=== PATIENT | female | born 1945 ===

== ENCOUNTER 2018-08-25 21:41 | Inpatient (IN) | payer MEDICARE ==
--- NOTE | 2018-08-25 22:41 | C.PDOC ---
History Of Present Illness pt had 3-4 episodes of bright red blood per rectum today. Some discomfort. Has had some diarrhea for a few days, Blood not mixed with stool. No chest pain, no f/c/n/v. Tolerating po Time Seen by Provider: 08/25/18 22:40 Chief Complaint (Nursing): GI Problem History Per: Patient, Family History/Exam Limitations: no limitations Onset/Duration Of Symptoms: Hrs Current Symptoms Are (Timing): Still Present Severity: Moderate Pain Scale Rating Of: 5 Recent travel outside of the [place]: No Additional History Per: Family Past Medical History Reviewed: Historical Data, Nursing Documentation, Vital Signs Vital Signs: Last Vital Signs Temp 97.7 F 08/25/18 21:54 Pulse 103 H 08/25/18 21:54 Resp 20 08/25/18 21:54 BP 172/83 H 08/25/18 21:54 Pulse Ox 99 08/25/18 21:54 - Medical History PMH: Diabetes, Gastritis, HTN, Hypercholesterolemia, Hyperlipidemia Surgical History: Cholecystectomy Family History: States: No Known Family Hx - Social History Hx Alcohol Use: No Hx Substance Use: No - Immunization History Hx Tetanus Toxoid Vaccination: No Hx Influenza Vaccination: Yes Hx Pneumococcal Vaccination: Yes Review Of Systems Constitutional: Negative for: Fever, Chills Cardiovascular: Negative for: Chest Pain Respiratory: Negative for: Shortness of Breath Gastrointestinal: Positive for: Rectal Pain, Other (rectal bleed). Negative for: Nausea, Vomiting, Abdominal Pain Genitourinary: Negative for: Dysuria Musculoskeletal: Negative for: Back Pain Neurological: Negative for: Weakness Psych: Negative for: Anxiety Physical Exam - Physical Exam Appears: Non-toxic, No Acute Distress Skin: Warm, Dry Head: Normacephalic Eye(s): bilateral: Normal Inspection Oral Mucosa: Moist Neck: Supple Chest: Symmetrical Cardiovascular: Rhythm Regular Respiratory: No Rales, No Rhonchi Gastrointestinal/Abdominal: Soft, No Tenderness, No Distention Rectal: Heme Positive, Tenderness (mild), Other (ED lilian stewart present as well as the pt's mom(HIPAA complinat) for the rectal exam) Back: No CVA Tenderness Extremity: Normal ROM Extremity: Bilateral: Atraumatic Pulses: Left Dorsalis Pedis: Normal, Right Dorsalis Pedis: Normal Neurological/Psych: Oriented x3 Gait: Steady ED Course And Treatment - Laboratory Results Result Diagrams: 08/25/18 23:34 08/25/18 23:34 ECG: Interpreted By Me, Viewed By Me ECG Rhythm: Sinus Rhythm (97), Nonspecific Changes O2 Sat by Pulse Oximetry: 99 Pulse Ox Interpretation: Normal - Radiology CXR: Interpreted by Me Disposition Discussed With Dr.: Leonel Best Jr. Comment: accepted the pt on his service and took over the care at 2:56 AM Doctor Will See Patient In The: ED Counseled Patient/Family Regarding: Studies Performed, Diagnosis - Disposition Disposition: HOSPITALIZED Disposition Time: 22:41 Condition: FAIR Forms: [employer] (Thai) - POA Present On Arrival: Poor Glycemic Control - Clinical Impression Clinical Impression: Lower GI bleed, Renal insufficiency Decision To Admit - Pt Status Changed To: Hospital Disposition Of: Inpatient - Admit Certification Admit to Inpatient:: After my assessment, the patient will require hospitalization for at least two midnights. This is because of the severity of symptoms shown, intensity of services needed, and/or the medical risk in this patient being treated as an outpatient. - InPatient: Physician Admission Certification: I certify that this patient requires 2 or more midnights of care for the following reason:: After my assessment, the patient will require hospitalization for at least two midnights. This is because of the severity of symptoms shown, intensity of services needed, and/or the medical risk in this patient being treated as an outpatient. - . Bed Request Type: Regular Admitting Physician: Leonel Best Jr. Patient Diagnosis: Lower GI bleed, Renal insufficiency
[2018-08-25] MEDS ORDERED: Sodium Chloride 0.9% 1,000 ML IV ONE (22:42)
[2018-08-25] MEDS ORDERED: Pantoprazole 80 MG in Sodium Chloride 0.9% 100 ML IV STA (22:42)
[2018-08-25 23:39] LABS: BASO # 0.1 K/uL (0.0-0.2); BASO % 1.3 % (0.0-2.0); EOS # 0.4 K/uL (0.0-0.7); EOS % 3.8 % (0.0-4.0); HEMOGLOBIN 11.3 g/dL (11.0-16.0); LYMPH # 1.6 K/uL (1.0-4.3); LYMPH % 14.5 % (20.0-40.0); MEAN CELL VOLUME 89.7 fL (81.0-99.0); MEAN CORPUSCULAR HEMOGLOBIN 30.6 pg (27.0-31.0); MEAN CORPUSCULAR HGB CONC 34.1 g/dL (33.0-37.0); MEAN PLATELET VOLUME 8.4 fL (7.2-11.7); MONO # 0.7 K/uL (0.0-0.8); MONO % 6.7 % (0.0-10.0); NEUT # 8.2 K/uL (1.8-7.0); NEUT % 73.7 % (50.0-75.0); RBC 3.69 Mil/uL (3.80-5.20); RED CELL DISTRIBUTION WIDTH 13.2 % (11.5-14.5); WHITE BLOOD COUNT 11.1 K/uL (4.8-10.8)
[2018-08-25 23:42] LABS: SQUAMOUS EPITHIAL < 1 /hpf (0-5); URINE BILIRUBIN NEGATIVE (NEGATIVE); URINE BLOOD NEGATIVE (NEGATIVE); URINE CLARITY Clear (Clear); URINE COLOR Straw (YELLOW); URINE GLUCOSE (UA) NORMAL (Normal); URINE LEUKOCYTE ESTERASE NEG Leu/uL (Negative); URINE PROTEIN NEGATIVE (NEGATIVE); URINE UROBILINOGEN NORMAL mg/dL (0.2-1.0)
[2018-08-25] MEDS ORDERED: Sodium Chloride 0.9% 1,000 ML ONE (23:43)
[2018-08-25 23:46] LABS: INR 1.1; PROTHROMBIN TIME 12.5 SECONDS (9.7-12.2)
[2018-08-25 23:49] LABS: ALB/GLOB RATIO 1.1 (1.0-2.1); ALBUMIN 4.3 g/dL (3.5-5.0); CALCIUM 9.4 mg/dl (8.6-10.4)
[2018-08-26] MEDS ORDERED: Sodium Chloride 0.9% 1,000 ML IV ONE (01:06)
[2018-08-26] MEDS ORDERED: Iohexol 300 100 ML IJ ONE (01:18)
[2018-08-26] MEDS ORDERED: Sodium Chloride 0.9% 1,000 ML IV SCH (03:15)
[2018-08-26] MEDS ORDERED: Dextrose 50% SYRINGE Inj (50 ml) IV PRN (03:22)
[2018-08-26] MEDS ORDERED: Glucagon Recombinant 1 mg Inj IM PRN (03:22)
--- NOTE | 2018-08-26 03:49 | CP.PCM.HP ---
History of Present Illness - History of Present Illness History of Present Illness: PGY-1 History and Physical for Dr. Best Patient is a 73 year old F with past medical history of HTN, HLD, DM, gastritis, hemorrhoids presenting to ED with 3-4 episodes of bright red blood per rectum today. Per daughter at bedside, bleeding began at 2pm this afternoon with last episode at 11 pm. Daughter says first episode was chema blood not mixed with stool. In the ED, blood streaked stool was noted. Of note, patient has hx of internal hemorrhoids ~ 6 years ago. Her last colonoscopy was 3 years ago at [facility]. No fevers/chills, headaches, dizziness, syncope, blurry vision, chest pain, palpitation, sob, cough, abdominal pain, n/v/d/c, dysuria, melena. PMHx: HTN, HLD, DM, gastritis, internal hemorrhoids PSHx: cholecystectomy, colonoscopy (3 years ago) Allergies: enalapril, tramadol--"heart racing" Home Medications: as per chart Social Hx: denies alcohol, tobacco, illicit drug use Family Hx: unknown Present on Admission - Present on Admission Any Indicators Present on Admission: Yes Review of Systems - Review of Systems All systems: reviewed and no additional remarkable complaints except Review of Systems: as per HPI Past Patient History - Infectious Disease Hx of Infectious Diseases: None - Past Social History Smoking Status: Never Smoked - CARDIAC Hx Hypercholesterolemia: Yes Hx Hypertension: Yes - ENDOCRINE/METABOLIC Hx Endocrine Disorders: Yes Hx Diabetes Mellitus Type 1: Yes - GASTROINTESTINAL Hx Gastritis: Yes - PSYCHIATRIC Hx Substance Use: No - SURGICAL HISTORY Hx Cholecystectomy: Yes - ANESTHESIA Hx Anesthesia: Yes Hx Anesthesia Reactions: No Meds Allergies/Adverse Reactions: Allergies Allergy/AdvReac Type Severity Reaction Status Date / Time enalapril Allergy Verified 08/25/18 21:59 tramadol Allergy Verified 08/25/18 21:59 Physical Exam - Constitutional Appears: Non-toxic, No Acute Distress - Head Exam Head Exam: ATRAUMATIC, NORMAL INSPECTION, NORMOCEPHALIC - Eye Exam Eye Exam: EOMI, Normal appearance Pupil Exam: NORMAL ACCOMODATION - ENT Exam ENT Exam: Mucous Membranes Moist, Normal Exam - Neck Exam Neck exam: Positive for: Full Rom, Normal Inspection. Negative for: Tenderness - Respiratory Exam Respiratory Exam: Clear to Auscultation Bilateral, NORMAL BREATHING PATTERN. absent: Accessory Muscle Use, Rales, Rhonchi, Wheezes, Respiratory Distress, Stridor - Cardiovascular Exam Cardiovascular Exam: REGULAR RHYTHM, +S1, +S2 - GI/Abdominal Exam GI & Abdominal Exam: Normal Bowel Sounds, Soft. absent: Distended, Firm, Guarding, Organomegaly, Rebound, Rigid, Tenderness - Rectal Exam Rectal Exam: absent: Bloody Stool, Hemorrhoids - Extremities Exam Extremities exam: Positive for: normal capillary refill, normal inspection, pedal pulses present. Negative for: calf tenderness, pedal edema - Back Exam Back exam: NORMAL INSPECTION - Neurological Exam Neurological exam: Alert, CN II-XII Intact, Oriented x3 - Psychiatric Exam Psychiatric exam: Normal Affect, Normal Mood - Skin Skin Exam: Dry, Intact, Normal Color, Warm Results - Vital Signs Recent Vital Signs: Last Vital Signs Temp 97.7 F 08/25/18 21:54 Pulse 89 08/26/18 01:52 Resp 20 08/26/18 01:52 BP 148/66 08/26/18 01:52 Pulse Ox 99 08/26/18 02:57 - Labs Result Diagrams: 08/25/18 23:34 08/25/18 23:34 Labs: Laboratory Results - last 24 hr 08/25/18 08/25/18 08/25/18 22:51 23:22 23:34 WBC 11.1 H RBC 3.69 L Hgb 11.3 Hct 33.1 L MCV 89.7 MCH 30.6 MCHC 34.1 RDW 13.2 Plt Count 261 MPV 8.4 Neut % (Auto) 73.7 Lymph % (Auto) 14.5 L [place] % (Auto) 6.7 Eos % (Auto) 3.8 Baso % (Auto) 1.3 Neut # (Auto) 8.2 H Lymph # (Auto) 1.6 [place] # (Auto) 0.7 Eos # (Auto) 0.4 Baso # (Auto) 0.1 PT INR APTT Sodium Potassium Chloride Carbon Dioxide Anion Gap BUN Creatinine Est GFR ( Amer) Est GFR (Non-Af Amer) Random Glucose Calcium Total Bilirubin AST ALT Alkaline Phosphatase Total Protein Albumin Globulin Albumin/Globulin Ratio Urine Color Urine Clarity Urine pH Ur Specific [place] Urine Protein Urine Glucose (UA) Urine Ketones Urine Blood Urine Nitrate Urine Bilirubin Urine Urobilinogen Ur Leukocyte Esterase Urine WBC (Auto) Urine RBC (Auto) Ur Squamous Epith Cells Hyaline Casts Stool Occult Blood Negative Positive H Blood Type Antibody Screen 08/25/18 08/25/18 08/25/18 23:34 23:34 23:34 WBC RBC Hgb Hct MCV MCH MCHC RDW Plt Count MPV Neut % (Auto) Lymph % (Auto) [place] % (Auto) Eos % (Auto) Baso % (Auto) Neut # (Auto) Lymph # (Auto) [place] # (Auto) Eos # (Auto) Baso # (Auto) PT 12.5 H INR 1.1 APTT 46 H Sodium 137 Potassium 3.8 Chloride 101 Carbon Dioxide 26 Anion Gap 14 BUN 34 H Creatinine 1.5 H Est GFR ( Amer) 41 Est GFR (Non-Af Amer) 34 Random Glucose 262 H D Calcium 9.4 Total Bilirubin 0.3 AST 20 ALT 19 Alkaline Phosphatase 174 H Total Protein 8.0 Albumin 4.3 Globulin 3.8 Albumin/Globulin Ratio 1.1 Urine Color Straw Urine Clarity Clear Urine pH 5.0 Ur Specific [place] 1.009 Urine Protein Negative Urine Glucose (UA) Normal Urine Ketones Negative Urine Blood Negative Urine Nitrate Negative Urine Bilirubin Negative Urine Urobilinogen Normal Ur Leukocyte Esterase Neg Urine WBC (Auto) 2 Urine RBC (Auto) < 1 Ur Squamous Epith Cells < 1 Hyaline Casts 3-5 H Stool Occult Blood Blood Type Antibody Screen 08/25/18 23:42 WBC RBC Hgb Hct MCV MCH MCHC RDW Plt Count MPV Neut % (Auto) Lymph % (Auto) [place] % (Auto) Eos % (Auto) Baso % (Auto) Neut # (Auto) Lymph # (Auto) [place] # (Auto) Eos # (Auto) Baso # (Auto) PT INR APTT Sodium Potassium Chloride Carbon Dioxide Anion Gap BUN Creatinine Est GFR ( Amer) Est GFR (Non-Af Amer) Random Glucose Calcium Total Bilirubin AST ALT Alkaline Phosphatase Total Protein Albumin Globulin Albumin/Globulin Ratio Urine Color Urine Clarity Urine pH Ur Specific [place] Urine Protein Urine Glucose (UA) Urine Ketones Urine Blood Urine Nitrate Urine Bilirubin Urine Urobilinogen Ur Leukocyte Esterase Urine WBC (Auto) Urine RBC (Auto) Ur Squamous Epith Cells Hyaline Casts Stool Occult Blood Blood Type B POSITIVE Antibody Screen Negative Assessment & Plan - Assessment and Plan (Free Text) Assessment: 73 year old F with pmhx of HTN, HLD, DM, gastritis, internal hemorrhoids presenting to ED with 3-4 episodes of bright red blood per rectum that began earlier today. Plan: Lower GI bleed -vs wnl -Hb/Hct: 11.3/33.1 -PT/INR: 12.5/1.1 -PTT 46 -fecal occult positive x 1 -rectal exam negative for chema blood, no hemorrhoids palpated -AM labs -continue to monitor H/H -type and cross -f/u CT abdomen/pelvis -home ASA held -NS IVF -GI (Dr. Nuñez) consulted FERN -BUN/Cr: 34/1.5 -continue to monitor -NS IVF HTN -restart home losartan 100 mg PO daily DM -f/u A1C -restart home metformin 500 mg PO BID -ISS -accucheck ACHS -hypoglycemic protocol PPx, Diet, Disposition -DVT ppx: scds, chemical anticoagulation held 2/2 bleeding -GI ppx: pepcid 20 mg PO HS -Diet: NPO -PT/OT on board Further recs as per Dr. Nasir Conner DO, PGY-1
[2018-08-26 04:23] LABS: BASO # 0.1 K/uL (0.0-0.2); EOS # 0.4 K/uL (0.0-0.7); EOS % 3.9 % (0.0-4.0); HEMOGLOBIN 10.2 g/dL (11.0-16.0); LYMPH # 1.9 K/uL (1.0-4.3); LYMPH % 18.5 % (20.0-40.0); MEAN CORPUSCULAR HEMOGLOBIN 29.9 pg (27.0-31.0); MEAN CORPUSCULAR HGB CONC 33.3 g/dL (33.0-37.0); MEAN PLATELET VOLUME 8.3 fL (7.2-11.7); MONO # 0.7 K/uL (0.0-0.8); MONO % 6.5 % (0.0-10.0); NEUT # 7.1 K/uL (1.8-7.0); NEUT % 70.1 % (50.0-75.0); RBC 3.41 Mil/uL (3.80-5.20); RED CELL DISTRIBUTION WIDTH 13.2 % (11.5-14.5); WHITE BLOOD COUNT 10.1 K/uL (4.8-10.8)
[2018-08-26 04:43] LABS: ALB/GLOB RATIO 1.1 (1.0-2.1); ALBUMIN 3.7 g/dL (3.5-5.0); CALCIUM 8.7 mg/dl (8.6-10.4)
[2018-08-26] MEDS: (Novolin R) Insulin Human Regular 100 units/ml vial SC SCH ×4 (09:30→21:35)
--- NOTE | 2018-08-26 09:44 | CP.PCM.CON ---
History of Present Illness - History of Present Illness History of Present Illness: GI Fellow PGY4, Consult Note. Marya Miller is a pleasant 73F presenting with rectal bleeding. She started seeing blood last night in the toilet after some rectal discomfort the previous day. She lives with her and daughter. The daughter is present and able to confirm the stool was formed, brown and with red blood around the stool. The patient had ~5 BMs in the last 24 hrs and the bleeding has resolved since coming to the hospital. The patient feels more lightheaded than usual but no evidence of syncope, hypotension. Denies vomiting, abdominal pain. She has had a similar episode 6 years ago that was thought due to hemorrhoids. She had colonoscopy 3 years ago which confirmed hemorrhoids, but no polyps at that time. There were polyps [address] reviewed, no signs of neoplasm or acute findings suggesting colitis. There are scattered diverticulum. Labs show Hb only slightly less than baseline, ~10. PMHx - HTN, DM, Hemorrhoids PSHx - Cholecystectomy FMHx - unremarkable for GI related cancers SocHx - Denies alcohol, smoking. Lives independently with family. 12pt ROS completed and negative except for above. Past Patient History - Infectious Disease Hx of Infectious Diseases: None - Past Medical History & Family History Past Medical History?: Yes - Past Social History Smoking Status: Never Smoked - CARDIAC Hx Cardiac Disorders: Yes Hx Hypercholesterolemia: Yes Hx Hypertension: Yes - PULMONARY Hx Respiratory Disorders: No - NEUROLOGICAL Hx Neurological Disorder: No - HEENT Hx HEENT Problems: Yes Hx Glaucoma: Yes - RENAL Hx Chronic Kidney Disease: No - ENDOCRINE/METABOLIC Hx Endocrine Disorders: Yes Hx Diabetes Mellitus Type 1: Yes - HEMATOLOGICAL/ONCOLOGICAL Hx Blood Disorders: No - INTEGUMENTARY Hx Dermatological Problems: No - MUSCULOSKELETAL/RHEUMATOLOGICAL Hx Musculoskeletal Disorders: Yes Hx Falls: No - GASTROINTESTINAL Hx Gastrointestinal Disorders: Yes Hx Gastritis: Yes Hx Hemorrhoids: Yes - GENITOURINARY/GYNECOLOGICAL Hx Genitourinary Disorders: No - PSYCHIATRIC Hx Psychophysiologic Disorder: No Hx Substance Use: No - SURGICAL HISTORY Hx Surgeries: Yes Hx Cholecystectomy: Yes - ANESTHESIA Hx Anesthesia: Yes Hx Anesthesia Reactions: No Meds Allergies/Adverse Reactions: Allergies Allergy/AdvReac Type Severity Reaction Status Date / Time enalapril Allergy Verified 08/25/18 21:59 tramadol Allergy Verified 08/25/18 21:59 - Medications Medications: Current Medications Dextrose (Dextrose 50% Inj) 0 ml IV STAT PRN; Protocol PRN Reason: Hypoglycemia Protocol Dextrose (Glutose 15) 0 gm PO ONCE PRN; Protocol PRN Reason: Hypoglycemia Protocol Famotidine (Pepcid) 20 mg PO HS DEBRA Glucagon (Glucagen Diagnostic Kit) 0 mg IM STAT PRN; Protocol PRN Reason: Hypoglycemia Protocol Sodium Chloride (Sodium Chloride 0.9%) 1,000 mls @ 100 mls/hr IV .Q10H DEBRA Last Admin: 08/26/18 05:30 Dose: 100 mls/hr Dextrose (Dextrose 5% In Water 1000 Ml) 1,000 mls @ 0 mls/hr IV .Q0M PRN; Protocol PRN Reason: Hypoglycemia Protocol Influenza Virus Vaccine (Flucelvax Quad [id number] Syr) 60 mcg IM .ONCE ONE Stop: 08/28/18 10:01 Insulin Human Regular (Novolin R) 0 unit SC ACHS [facility]; Protocol Last Admin: 08/26/18 09:30 Dose: Not Given Losartan Potassium (Cozaar) 100 mg PO DAILY [facility] Metformin HCl (Glucophage) 500 mg PO BID [facility] Timolol Maleate (Timoptic 0.25% Ophth Soln) 0 drop OU DAILY [facility] Physical Exam - Constitutional Appears: Well, Non-toxic - Head Exam Head Exam: ATRAUMATIC, NORMAL INSPECTION - Eye Exam Eye Exam: EOMI, Normal appearance - ENT Exam ENT Exam: Mucous Membranes Moist, Normal Exam - Respiratory Exam Respiratory Exam: Clear to Auscultation Bilateral, NORMAL BREATHING PATTERN - Cardiovascular Exam Cardiovascular Exam: REGULAR RHYTHM, +S1, +S2 - GI/Abdominal Exam GI & Abdominal Exam: Normal Bowel Sounds, Soft. absent: Organomegaly, Tenderness - Neurological Exam Neurological exam: Alert, CN II-XII Intact, Oriented x3 - Skin Skin Exam: Dry, Normal Color Results - Vital Signs Recent Vital Signs: Last Vital Signs Temp 97.5 F L 08/26/18 08:31 Pulse 78 08/26/18 08:31 Resp 20 08/26/18 08:31 BP 122/59 L 08/26/18 08:31 Pulse Ox 97 08/26/18 08:31 - Labs Result Diagrams: 08/26/18 10:06 08/26/18 04:19 Labs: Laboratory Results - last 24 hr 08/25/18 08/25/1819 22:51 23:22 23:34 WBC 11.1 H RBC 3.69 L Hgb 11.3 Hct 33.1 L MCV 89.7 MCH 30.6 MCHC 34.1 RDW 13.2 Plt Count 261 MPV 8.4 Neut % (Auto) 73.7 Lymph % (Auto) 14.5 L [place] % (Auto) 6.7 Eos % (Auto) 3.8 Baso % (Auto) 1.3 Neut # (Auto) 8.2 H Lymph # (Auto) 1.6 [place] # (Auto) 0.7 Eos # (Auto) 0.4 Baso # (Auto) 0.1 PT INR APTT Sodium Potassium Chloride Carbon Dioxide Anion Gap BUN Creatinine Est GFR ( Amer) Est GFR (Non-Af Amer) POC Glucose (mg/dL) Random Glucose Hemoglobin A1c Calcium Phosphorus Magnesium Total Bilirubin AST ALT Alkaline Phosphatase Total Protein Albumin Globulin Albumin/Globulin Ratio Urine Color Urine Clarity Urine pH Ur Specific [place] Urine Protein Urine Glucose (UA) Urine Ketones Urine Blood Urine Nitrate Urine Bilirubin Urine Urobilinogen Ur Leukocyte Esterase Urine WBC (Auto) Urine RBC (Auto) Ur Squamous Epith Cells Hyaline Casts Stool Occult Blood Negative Positive H Blood Type Antibody Screen 08/25/18 08/25/18 08/25/18 23:34 23:34 23:34 WBC RBC Hgb Hct MCV MCH MCHC RDW Plt Count MPV Neut % (Auto) Lymph % (Auto) [place] % (Auto) Eos % (Auto) Baso % (Auto) Neut # (Auto) Lymph # (Auto) [place] # (Auto) Eos # (Auto) Baso # (Auto) PT 12.5 H INR 1.1 APTT 46 H Sodium 137 Potassium 3.8 Chloride 101 Carbon Dioxide 26 Anion Gap 14 BUN 34 H Creatinine 1.5 H Est GFR ( Amer) 41 Est GFR (Non-Af Amer) 34 POC Glucose (mg/dL) Random Glucose 262 H D Hemoglobin A1c Calcium 9.4 Phosphorus Magnesium Total Bilirubin 0.3 AST 20 ALT 19 Alkaline Phosphatase 174 H Total Protein 8.0 Albumin 4.3 Globulin 3.8 Albumin/Globulin Ratio 1.1 Urine Color Straw Urine Clarity Clear Urine pH 5.0 Ur Specific [place] 1.009 Urine Protein Negative Urine Glucose (UA) Normal Urine Ketones Negative Urine Blood Negative Urine Nitrate Negative Urine Bilirubin Negative Urine Urobilinogen Normal Ur Leukocyte Esterase Neg Urine WBC (Auto) 2 Urine RBC (Auto) < 1 Ur Squamous Epith Cells < 1 Hyaline Casts 3-5 H Stool Occult Blood Blood Type Antibody Screen 08/25/18 08/26/18 08/26/18 23:42 04:19 04:19 WBC 10.1 RBC 3.41 L Hgb 10.2 L Hct 30.7 L MCV 90.0 MCH 29.9 MCHC 33.3 RDW 13.2 Plt Count 229 MPV 8.3 Neut % (Auto) 70.1 Lymph % (Auto) 18.5 L [place] % (Auto) 6.5 Eos % (Auto) 3.9 Baso % (Auto) 1.0 Neut # (Auto) 7.1 H Lymph # (Auto) 1.9 [place] # (Auto) 0.7 Eos # (Auto) 0.4 Baso # (Auto) 0.1 PT INR APTT Sodium 137 Potassium 4.3 Chloride 105 Carbon Dioxide 24 Anion Gap 12 BUN 30 H Creatinine 1.3 H Est GFR ( Amer) 49 Est GFR (Non-Af Amer) 40 POC Glucose (mg/dL) Random Glucose 174 H D Hemoglobin A1c Calcium 8.7 Phosphorus 3.8 Magnesium 1.5 L Total Bilirubin 0.3 AST 18 ALT 22 Alkaline Phosphatase 150 H Total Protein 7.1 Albumin 3.7 Globulin 3.4 Albumin/Globulin Ratio 1.1 Urine Color Urine Clarity Urine pH Ur Specific [place] Urine Protein Urine Glucose (UA) Urine Ketones Urine Blood Urine Nitrate Urine Bilirubin Urine Urobilinogen Ur Leukocyte Esterase Urine WBC (Auto) Urine RBC (Auto) Ur Squamous Epith Cells Hyaline Casts Stool Occult Blood Blood Type B POSITIVE Antibody Screen Negative 08/26/18 08/26/18 08/26/18 04:19 04:19 07:15 WBC RBC Hgb Hct MCV MCH MCHC RDW Plt Count MPV Neut % (Auto) Lymph % (Auto) [place] % (Auto) Eos % (Auto) Baso % (Auto) Neut # (Auto) Lymph # (Auto) [place] # (Auto) Eos # (Auto) Baso # (Auto) PT INR APTT Sodium Potassium Chloride Carbon Dioxide Anion Gap BUN Creatinine Est GFR ( Amer) Est GFR (Non-Af Amer) POC Glucose (mg/dL) 106 Random Glucose Hemoglobin A1c 7.2 H Calcium Phosphorus Magnesium Total Bilirubin AST ALT Alkaline Phosphatase Total Protein Albumin Globulin Albumin/Globulin Ratio Urine Color Urine Clarity Urine pH Ur Specific [place] Urine Protein Urine Glucose (UA) Urine Ketones Urine Blood Urine Nitrate Urine Bilirubin Urine Urobilinogen Ur Leukocyte Esterase Urine WBC (Auto) Urine RBC (Auto) Ur Squamous Epith Cells Hyaline Casts Stool Occult Blood Blood Type B POSITIVE Antibody Screen Negative Assessment & Plan - Assessment and Plan (Free Text) Assessment: #Rectal bleeding #HTN, DM PLAN: -CT reviewed, no obvious mass, colitis present -Bleeding appears to have resolved. Vitals stable. -Bleeding is likely hemorrhoids (Brown stool with red blood around stool) -Patient requesting to go home as it is the weekend and we would not be able to complete a colonoscopy until Wednesday. Patient and family aware she should have colonoscopy in the next few weeks and should follow-up with GI. -Advised to drink plenty of water with fiber (fruits, vegatables or benefiber) -Return to ER if symptoms persist. Case discussed with Dr. Nuñez, see attestation. - Date & Time Date: 08/26/18 Time: 13:22
[2018-08-26 10:23] LABS: BASO # 0.1 K/uL (0.0-0.2); BASO % 0.8 % (0.0-2.0); EOS # 0.4 K/uL (0.0-0.7); EOS % 4.5 % (0.0-4.0); HEMOGLOBIN 10.1 g/dL (11.0-16.0); LYMPH # 1.6 K/uL (1.0-4.3); LYMPH % 19.1 % (20.0-40.0); MEAN CELL VOLUME 89.6 fL (81.0-99.0); MEAN CORPUSCULAR HEMOGLOBIN 30.9 pg (27.0-31.0); MEAN CORPUSCULAR HGB CONC 34.5 g/dL (33.0-37.0); MEAN PLATELET VOLUME 8.5 fL (7.2-11.7); MONO # 0.6 K/uL (0.0-0.8); MONO % 7.1 % (0.0-10.0); NEUT # 5.9 K/uL (1.8-7.0); NEUT % 68.5 % (50.0-75.0); RBC 3.26 Mil/uL (3.80-5.20); RED CELL DISTRIBUTION WIDTH 12.9 % (11.5-14.5); WHITE BLOOD COUNT 8.6 K/uL (4.8-10.8)
[2018-08-26] MEDS: Timolol 0.25% Ophth SOLN OU SCH (10:29)
[2018-08-26] MEDS ORDERED: Phytonadione 10 mg/ml Inj (Adult) SC ONE (11:45)
--- NOTE | 2018-08-26 13:44 | CT ---
Date of service: 08/26/2018 PROCEDURE: CT Abdomen and Pelvis with contrast HISTORY: lower gi bleed COMPARISON: Abdominal plain film performed 06/14/15 TECHNIQUE: Contrast dose: 100 mL Omnipaque 300 IV Radiation dose: Total exam DLP = 755.27 mGy-cm. This CT exam was performed using one or more of the following dose reduction techniques: Automated exposure control, adjustment of the mA and/or kV according to patient size, and/or use of iterative reconstruction technique. FINDINGS: LOWER THORAX: No visible consolidation, pleural effusion, or pneumothorax. LIVER: Unremarkable. No gross lesion or ductal dilatation. GALLBLADDER AND BILE DUCTS: Cholecystectomy. PANCREAS: Atrophy. SPLEEN: Unremarkable. ADRENALS: Unremarkable. KIDNEYS AND URETERS: The kidneys enhance symmetrically. No hydronephrosis or obstructing calculus identified. 11 mm right renal cyst. VASCULATURE: No aortic aneurysm. Atherosclerotic calcifications present. BOWEL: Stomach is nondistended. Lack of oral contrast limits evaluation for bowel pathology. Bowel loops appear within normal limits of caliber without evidence of obstruction. Diverticulosis without CT evidence of acute diverticulitis. Diverticulum of the 1st portion of the duodenum. APPENDIX: The appendix appears within normal limits of caliber. No secondary signs of acute appendicitis. PERITONEUM: No significant free fluid. No definite free air. LYMPH NODES: No bulky adenopathy identified. BLADDER: Under distention of the urinary bladder limits evaluation. REPRODUCTIVE: Uterus is present. BONES: Degenerative changes. OTHER FINDINGS: None. IMPRESSION: Diverticulosis without CT evidence of acute diverticulitis. Diverticulum of the proximal duodenum. Pancreatic atrophy. Cholecystectomy. Preliminary impression was provided by [facility]
[2018-08-26] MEDS ORDERED: Peg-Electrolyte Oral Soln 4L (Golytely) PO ONE (14:00)
[2018-08-26] MEDS ORDERED: Bisacodyl 5mg EC Tab PO ONE (17:00)
--- NOTE | 2018-08-26 17:51 | CP.PCM.PN ---
Subjective - Date & Time of Evaluation Date of Evaluation: 08/26/18 Time of Evaluation: 17:51 - Subjective Subjective: PGY-[address] Best Patient seen and examined at bedside. No acute events overnight. Patient did c/o some dizziness this morning, but repeat CBC was stable. Patient denies chest pain, shortness of breath, headache, n/v/d/c. Objective - Vital Signs/Intake and Output Vital Signs (last 24 hours): Temp Pulse Resp BP Pulse Ox 97.8 F 69 20 146/78 97 08/26/18 15:48 08/26/18 15:48 08/26/18 15:48 08/26/18 15:48 08/26/18 15:48 Intake and Output: 08/26/18 08/26/18 06:59 18:59 Intake Total 480 Balance 480 - Medications Medications: Current Medications Dextrose (Dextrose 50% Inj) 0 ml IV STAT PRN; Protocol PRN Reason: Hypoglycemia Protocol Dextrose (Glutose 15) 0 gm PO ONCE PRN; Protocol PRN Reason: Hypoglycemia Protocol Famotidine (Pepcid) 20 mg PO HS DEBRA Glucagon (Glucagen Diagnostic Kit) 0 mg IM STAT PRN; Protocol PRN Reason: Hypoglycemia Protocol Dextrose (Dextrose 5% In Water 1000 Ml) 1,000 mls @ 0 mls/hr IV .Q0M PRN; Protocol PRN Reason: Hypoglycemia Protocol Dextrose/Sodium Chloride (Dextrose 5%/0.9% Ns 1000 Ml) 1,000 mls @ 100 mls/hr IV .Q10H [facility] Influenza Virus Vaccine (Flucelvax Quad [id number] Syr) 60 mcg IM .ONCE ONE Stop: 08/28/18 10:01 Insulin Human Regular (Novolin R) 0 unit SC ACHS [facility]; Protocol Last Admin: 08/26/18 17:10 Dose: 1 unit Losartan Potassium (Cozaar) 100 mg PO DAILY [facility] Last Admin: 08/26/18 09:59 Dose: 100 mg Metformin HCl (Glucophage) 500 mg PO BID [facility] Last Admin: 08/26/18 17:09 Dose: 500 mg Timolol Maleate (Timoptic 0.25% Ophth Soln) 0 drop OU DAILY [facility] Last Admin: 08/26/18 10:29 Dose: 1 drop - Labs Labs: 08/26/18 10:06 08/26/18 04:19 PT 12.5 SECONDS (9.7-12.2) H 08/25/18 23:34 INR 1.1 08/25/18 23:34 APTT 46 SECONDS (21-34) H 08/25/18 23:34 - Constitutional Appears: Non-toxic, No Acute Distress - Head Exam Head Exam: ATRAUMATIC, NORMOCEPHALIC - Eye Exam Eye Exam: EOMI - ENT Exam ENT Exam: Mucous Membranes Moist - Respiratory Exam Respiratory Exam: Clear to Ausculation Bilateral, NORMAL BREATHING PATTERN. absent: Rales, Rhonchi, Wheezes - Cardiovascular Exam Cardiovascular Exam: REGULAR RHYTHM, +S1, +S2 - GI/Abdominal Exam GI & Abdominal Exam: Soft, Normal Bowel Sounds. absent: Tenderness - Extremities Exam Extremities Exam: absent: Pedal Edema, Tenderness - Neurological Exam Neurological Exam: Alert, Awake, Oriented x3 - Psychiatric Exam Psychiatric exam: Normal Affect, Normal Mood - Skin Skin Exam: Dry, Intact Assessment and Plan - Assessment and Plan (Free Text) Assessment: 73 year old F with pmhx of HTN, HLD, DM, gastritis, internal hemorrhoids presenting to ED with 3-4 episodes of bright red blood per rectum that began earlier today. Plan: R/o GI Bleed -vs wnl -Hb/Hct: 11.3/33.1 -PT/INR: 12.5/1.1 -PTT 46 -fecal occult positive x 1 -rectal exam negative for chema blood, no hemorrhoids palpated CT abd/pelvis 08/26: Diverticulosis without CT evidence of acute diverticulitis. Diverticulum of the proximal duodenum. Pancreatic atrophy. Cholecystectomy. -AM labs -continue to monitor H/H -type and cross -f/u CT abdomen/pelvis -home ASA held -NS IVF -GI (Dr. Nuñez) consulted - patient with diverticuli on CT abdomen/pelvis --Patient will require colonoscopy. Can be done inpatient or outpatient. FERN -BUN/Cr: 34/1.5 -continue to monitor -NS IVF HTN -home losartan 100 mg PO daily DM -f/u A1C -home metformin 500 mg PO BID -ISS -accucheck ACHS -hypoglycemic protocol PPx, Diet, Disposition -DVT ppx: scds, chemical anticoagulation held 2/2 bleeding -GI ppx: pepcid 20 mg PO HS -Diet: NPO -PT/OT on board Further recs as per Dr. Nasir Fernandez, PGY-1
[2018-08-26] MEDS: Dextrose 5%/0.9% NS 1,000 ML IV SCH (21:10)
[2018-08-27 05:55] LABS: HEMOGLOBIN 10.6 g/dL (11.0-16.0); MEAN CELL VOLUME 89.5 fL (81.0-99.0); MEAN CORPUSCULAR HEMOGLOBIN 30.6 pg (27.0-31.0); MEAN CORPUSCULAR HGB CONC 34.2 g/dL (33.0-37.0); MEAN PLATELET VOLUME 8.1 fL (7.2-11.7); RBC 3.47 Mil/uL (3.80-5.20); RED CELL DISTRIBUTION WIDTH 13.3 % (11.5-14.5); WHITE BLOOD COUNT 9.3 K/uL (4.8-10.8)
[2018-08-27 06:28] LABS: ALB/GLOB RATIO 1.1 (1.0-2.1); ALBUMIN 3.9 g/dL (3.5-5.0); ALT/SGPT 14 U/L (9-52); AST/SGOT 24 U/L (14-36); BLOOD UREA NITROGEN 16 mg/dL (7-17); CALCIUM 8.7 mg/dl (8.6-10.4); GFR NON-AFRICAN AMERICAN 54
[2018-08-27] MEDS: Dextrose 5%/0.9% NS 1,000 ML IV SCH ×2 (07:07→07:10)
[2018-08-27] MEDS: (Novolin R) Insulin Human Regular 100 units/ml vial SC SCH ×3 (08:07→16:36)
[2018-08-27] MEDS ORDERED: Propofol 10 mg/ml Inj (20 ML) ONE ×2 (08:09→08:21)
[2018-08-27] MEDS ORDERED: Lidocaine Hydrochloride 5 ML INJ ONE (08:09)
[2018-08-27] MEDS ORDERED: Glucagon Recombinant 1 mg Inj ONE (08:17)
[2018-08-27] MEDS ORDERED: Sodium Chloride 0.9% 0 ML IV ONE (08:17)
[2018-08-27] MEDS ORDERED: Belladonna-Phenobarbital PO STA (08:25)
[2018-08-27] MEDS: Timolol 0.25% Ophth SOLN OU SCH (10:03)
[2018-08-27 10:09] VITALS: RESP 20
--- NOTE | 2018-08-27 16:04 | CP.PCM.DIS ---
Provider - Provider Date of Admission: 08/26/18 03:47 Attending physician: Leonel Best Jr, MD Consults: 08/26/18 06:26 Gastroenterology Consult Routine Comment: Consulting Provider: Becky Nuñez Consulting Physician: Becky Nuñez Reason for Consult: lower GI bleed Time Spent in preparation of Discharge (in minutes): 40 Diagnosis - Discharge Diagnosis (1) Lower GI bleed Status: Resolved (2) Diverticulosis of colon Status: Chronic (3) Hemorrhoids Status: Chronic (4) Hypertension Status: Chronic (5) Diabetes Status: Chronic Hospital Course - Lab Results Lab Results: Most Recent Lab Values WBC 9.3 K/uL (4.8-10.8) 08/27/18 05:52 RBC 3.47 Mil/uL (3.80-5.20) L 08/27/18 05:52 Hgb 10.6 g/dL (11.0-16.0) L 08/27/18 05:52 Hct 31.1 % (34.0-47.0) L 08/27/18 05:52 MCV 89.5 fL (81.0-99.0) 08/27/18 05:52 MCH 30.6 pg (27.0-31.0) 08/27/18 05:52 MCHC 34.2 g/dL (33.0-37.0) 08/27/18 05:52 RDW 13.3 % (11.5-14.5) 08/27/18 05:52 Plt Count 252 K/uL (130-400) 08/27/18 05:52 MPV 8.1 fL (7.2-11.7) 08/27/18 05:52 Neut % (Auto) 68.5 % (50.0-75.0) 08/26/18 10:06 Lymph % (Auto) 19.1 % (20.0-40.0) L 08/26/18 10:06 Coke % (Auto) 7.1 % (0.0-10.0) 08/26/18 10:06 Eos % (Auto) 4.5 % (0.0-4.0) H 08/26/18 10:06 Baso % (Auto) 0.8 % (0.0-2.0) 08/26/18 10:06 Neut # (Auto) 5.9 K/uL (1.8-7.0) 08/26/18 10:06 Lymph # (Auto) 1.6 K/uL (1.0-4.3) 08/26/18 10:06 Coke # (Auto) 0.6 K/uL (0.0-0.8) 08/26/18 10:06 Eos # (Auto) 0.4 K/uL (0.0-0.7) 08/26/18 10:06 Baso # (Auto) 0.1 K/uL (0.0-0.2) 08/26/18 10:06 PT 12.5 SECONDS (9.7-12.2) H 08/25/18 23:34 INR 1.1 08/25/18 23:34 APTT 46 SECONDS (21-34) H 08/25/18 23:34 Sodium 140 mmol/L (132-148) 08/27/18 05:52 Potassium 3.7 mmol/L (3.6-5.2) 08/27/18 05:52 Chloride 108 mmol/L (98-107) H 08/27/18 05:52 Carbon Dioxide 26 mmol/L (22-30) 08/27/18 05:52 Anion Gap 10 (10-20) 08/27/18 05:52 BUN 16 mg/dL (7-17) 08/27/18 05:52 Creatinine 1.0 mg/dL (0.7-1.2) 08/27/18 05:52 Est GFR ( Amer) > 60 08/27/18 05:52 Est GFR (Non-Af Amer) 54 08/27/18 05:52 POC Glucose (mg/dL) 192 mg/dL (65-110) H 08/27/18 11:31 Random Glucose 112 mg/dL (65-105) H D 08/27/18 05:52 Hemoglobin A1c 7.2 % (4.2-6.5) H 08/26/18 04:19 Calcium 8.7 mg/dl (8.6-10.4) 08/27/18 05:52 Phosphorus 3.8 mg/dL (2.5-4.5) 08/26/18 04:19 Magnesium 1.5 mg/dL (1.6-2.3) L 08/27/18 05:52 Total Bilirubin 0.3 mg/dL (0.2-1.3) 08/27/18 05:52 AST 24 U/L (14-36) 08/27/18 05:52 ALT 14 U/L (9-52) 08/27/18 05:52 Alkaline Phosphatase 112 U/L (38-126) 08/27/18 05:52 Total Protein 7.4 g/dL (6.3-8.3) 08/27/18 05:52 Albumin 3.9 g/dL (3.5-5.0) 08/27/18 05:52 Globulin 3.5 gm/dL (2.2-3.9) 08/27/18 05:52 Albumin/Globulin Ratio 1.1 (1.0-2.1) 08/27/18 05:52 Carcinoembryonic Ag 2.2 ng/mL (0-3.0) 08/26/18 04:19 CA 125 Antigen 6.8 U/mL (0-35) 08/26/18 04:19 Urine Color Straw (YELLOW) 08/25/18 23:34 Urine Clarity Clear (Clear) 08/25/18 23:34 Urine pH 5.0 (5.0-8.0) 08/25/18 23:34 Ur Specific [place] 1.009 (1.003-1.030) 08/25/18 23:34 Urine Protein Negative mg/dL (NEGATIVE) 08/25/18 23:34 Urine Glucose (UA) Normal mg/dL (Normal) 08/25/18 23:34 Urine Ketones Negative mg/dL (NEGATIVE) 08/25/18 23:34 Urine Blood Negative (NEGATIVE) 08/25/18 23:34 Urine Nitrate Negative (NEGATIVE) 08/25/18 23:34 Urine Bilirubin Negative (NEGATIVE) 08/25/18 23:34 Urine Urobilinogen Normal mg/dL (0.2-1.0) 08/25/18 23:34 Ur Leukocyte Esterase Neg Kira/uL (Negative) 08/25/18 23:34 Urine WBC (Auto) 2 /hpf (0-5) 08/25/18 23:34 Urine RBC (Auto) < 1 /hpf (0-3) 08/25/18 23:34 Ur Squamous Epith Cells < 1 /hpf (0-5) 08/25/18 23:34 Hyaline Casts 3-5 /lpf (0-2) H 08/25/18 23:34 Stool Occult Blood Positive (NEGATIVE) H 08/25/18 23:22 Blood Type B POSITIVE 08/26/18 04:19 Antibody Screen Negative 08/26/18 04:19 - Hospital Course Hospital Course: 73 year old female with past medical history of HTN, HLD, DM, gastritis, hemorrhoids presenting to ED with 3-4 episodes of bright red blood per rectum today. Per daughter at bedside, bleeding began at 2pm this afternoon with last episode at 11 pm. Daughter says first episode was chema blood not mixed with stool. In the ED, blood streaked stool was noted. Of note, patient has hx of internal hemorrhoids ~ 6 years ago. Her last colonoscopy was 3 years ago at [facility]. No fevers/chills, headaches, dizziness, syncope, blurry vision, chest pain, palpitation, sob, cough, abdominal pain, n/v/d/c, dysuria, melena. Her CT Abdomen in the ED shows diverticulosis. Upon hospital admission, GI was consulted with plans of doing colonoscopy. Patient's hemoglobin level remained stable throughout her hospital course. Patient underwent colonoscopy with Dr. Nuñez on 08/27 and was found to have severe diverticulosis in the entire colon without signs of active bleeding. Patient was recommended high fiber diet and analpram for hemorrhoids. Patient's bleed symptom resolved. Patient understood and agreed with the treatment plain. Above is a brief summary of patient's hospital course. Please refer to medical records to further detail. - Date & Time of H&P Date of H&P: 08/26/18 Time of H&P: 03:23 Discharge Exam - Head Exam Head Exam: ATRAUMATIC, NORMOCEPHALIC - Eye Exam Eye Exam: EOMI, Normal appearance, PERRL Pupil Exam: NORMAL ACCOMODATION - ENT Exam ENT Exam: Mucous Membranes Moist - Neck Exam Neck exam: Full Rom - Respiratory Exam Respiratory Exam: Clear to PA & Lateral, NORMAL BREATHING PATTERN, UNREMARKABLE. absent: Wheezes, Respiratory Distress - Cardiovascular Exam Cardiovascular Exam: REGULAR RHYTHM, +S1, +S2 - GI/Abdominal Exam GI & Abdominal Exam: Normal Bowel Sounds, Soft, Unremarkable - Extremities Exam Extremities exam: normal inspection - Neurological Exam Neurological exam: Alert, CN II-XII Intact, Oriented x3 - Psychiatric Exam Psychiatric exam: Normal Affect, Normal Mood - Skin Skin Exam: Dry, Intact, Normal Color, Warm Discharge Plan - Discharge Medications Prescriptions: Hydrocortisone 2.5% (Rectal) [Anusol-HC] 30 applic OR BID #1 tube - Follow Up Plan Condition: FAIR Disposition: HOME/ ROUTINE Instructions: High Fiber Diet, Gastrointestinal Bleeding (DC), Chronic Kidney Disease (DC) Additional Instructions: Patient is to follow up with PMD within 1 week of hospital discharge Patient will make an appointment to follow up with GI Dr. Nuñez for further GI management High fiber diet Continue home medications Go to the nearest ED if symptoms persist or worsen Referrals: Becky Nuñez [Staff Provider] - Leonel Best Jr., MD [Medical Doctor] -
[2018-08-27] MEDS ORDERED: Influenza Vaccine 60 mcg/0.5 mL SYR (4YR UP) IM ONE (16:15)
[2018-08-27 16:23] VITALS: BP 131/74; PULSE 69; TEMP 97.4; O2SAT 96
--- NOTE | 2018-08-30 19:47 | CARD ---
APPROVED REPORT Date of service: 08/26/2018 EKG Measurement Heart [id number] <Conclusion> Normal sinus rhythm Possible Inferior infarct, age undetermined Abnormal ECG
--- NOTE | 2018-09-09 09:54 | PQF ---
PROVIDER RESPONSE TEXT: Likely GI bleed due to hemorrhoids, or other unknown cause not identified at the time of the colonosc opy REVIEWER QUERY TEXT: Cause and Effect Relationship Please clarify in documentation the relationship, if any, between _RECTAL BLEEDING _and_ _HEMORROIDS Such as: -- Conditions are due to or associated -- Unrelated to each other -- Other, please specify The patient's Clinical Indicators include: RECTAL BLEEDING WITH COLONOSCOPY FINDINGS 2. DIVERTICULOSIS PLEASE, CLARIFY ETIOLOGY OF THE RECTAL (LOWER GI) BLEEDING Query created by: Gypsy Crisostomo on 08/30/2018 4:33 PM Electronically signed by: Leonel Best MD 09/09/2018 9:51 AM
== END 2018-08-27 17:24 | disposition home or self-care (01) | DRG 394 ==
LOC: C.ER 21:41 → C.9E 08-26 03:47 → C.3T 08-26 05:15
PROVIDERS: ADMIT Internal Medicine; ATTEND Internal Medicine
PROC: 0DBM8ZX Excision of Descending Colon, Via Natural or Artificial Opening Endoscopic, Diagnostic (ICD-10-PCS; principal; 2018-08-27 08:00)
DX: K64.8 Other hemorrhoids (principal); N17.9 Acute kidney failure, unspecified; K57.30 Diverticulosis of large intestine without perforation or abscess without bleeding; K64.4 Residual hemorrhoidal skin tags; K63.89 Other specified diseases of intestine; K58.0 Irritable bowel syndrome with diarrhea; E10.9 Type 1 diabetes mellitus without complications; I10 Essential (primary) hypertension; N28.9 Disorder of kidney and ureter, unspecified; E78.5 Hyperlipidemia, unspecified; E78.00 Pure hypercholesterolemia, unspecified; H40.9 Unspecified glaucoma; Z79.4 Long term (current) use of insulin; Z90.49 Acquired absence of other specified parts of digestive tract

== ENCOUNTER 2018-09-01 09:15 | Inpatient (IN) | payer MEDICARE ==
[2018-09-01 09:23] VITALS: BMI 32.5
[2018-09-01 09:50] VITALS: RESP 20
[2018-09-01] MEDS ORDERED: Sodium Chloride 0.9% 1,000 ML IV ONE (09:56)
[2018-09-01] MEDS ORDERED: Sodium Chloride 0.9% 1,000 ML ONE ×2 (10:12→13:59)
--- NOTE | 2018-09-01 10:15 | C.PDOC ---
History Of Present Illness 73 y/o female comes in to ED with daughter complaining of cold symptoms since yesterday and a fall earlier this morning. As per daughter, patient had cough 3 days ago and developed a fever yesterday with chills. Patient was seen here last week for rectal bleeding and was sent home on 08/27/18. Patient states that she woke up this morning to brush her teeth but vomited and passed out. Daughter reports that her sister called her, went upstairs, and found the patient awake by the time she got there. Patient does not remember any details of the fall. Daughter also reports that patient had decreased appetite. Otherwise denies abdo malissa pain, vomiting, hematuria, dysuria, congestion, or other symptoms. Time Seen by Provider: 09/01/18 09:23 Chief Complaint (Nursing): Syncope History Per: Patient History/Exam Limitations: no limitations Onset/Duration Of Symptoms: Days Current Symptoms Are (Timing): Still Present Past Medical History Reviewed: Historical Data, Nursing Documentation, Vital Signs Vital Signs: Last Vital Signs Temp 98.2 F 09/01/18 09:38 Pulse 81 09/01/18 09:49 Resp 20 09/01/18 09:49 BP 90/46 L 09/01/18 09:49 Pulse Ox 92 L 09/01/18 09:49 - Medical History PMH: Diabetes, Gastritis, HTN, Hypercholesterolemia, Hyperlipidemia Denies: Chronic Kidney Disease Surgical History: Cholecystectomy - [facility] Procedures EXCISION OF DESCENDING COLON, ENDO, DIAGN (08/26/18) Family History: States: No Known Family Hx - Social History Hx Alcohol Use: No Hx Substance Use: No - Immunization History Hx Tetanus Toxoid Vaccination: No Hx Influenza Vaccination: Yes Hx Pneumococcal Vaccination: Yes Review Of Systems Except As Marked, All Systems Reviewed And Found Negative. Constitutional: Positive for: Fever, Chills Cardiovascular: Negative for: Chest Pain Respiratory: Negative for: Shortness of Breath Gastrointestinal: Negative for: Vomiting, Abdominal Pain Genitourinary: Negative for: Dysuria, Hematuria Skin: Negative for: Rash Neurological: Positive for: Other (LOC) Physical Exam - Physical Exam Appears: Non-toxic, No Acute Distress Skin: Warm, Dry Head: Atraumatic, Normacephalic Eye(s): bilateral: Normal Inspection Oral Mucosa: Moist Neck: Supple Cardiovascular: Rhythm Regular, No Murmur Respiratory: Normal Breath Sounds, No Rales, No Rhonchi, No Wheezing Gastrointestinal/Abdominal: Soft, No Tenderness Extremity: No Pedal Edema Extremity: Bilateral: Atraumatic, Normal Color And Temperature, Normal ROM Neurological/Psych: Oriented x3, Normal Speech, Normal Motor, Normal Sensation, Normal Reflexes ED Course And Treatment - Laboratory Results Result Diagrams: 09/01/18 10:31 09/01/18 10:31 O2 Sat by Pulse Oximetry: 92 (RA) Pulse Ox Interpretation: Normal - Other Rad CXR X-Ray: Read By Radiologist Interpretation: FINDINGS: LUNGS: Trace left costophrenic angle atelectatic changes suspect-bordering left small pleural effusion and/or thickening.- chronicity unknown. No more extensive consolidative infiltrate seen. Shallow lung volumes. PLEURA: No pneumothorax. Small left pleural effusion overseas and/or pleural thickening) suspect. CARDIOVASCULAR: There is presence of aortic atherosclerotic calcification on x-ray. Mild cardiomegaly. Possible mild pulmonary venous congestion-in part likely accentuated crowding of vessels with shallow inspiration. OSSEOUS STRUCTURES: Thoracic spondylosis. VISUALIZED UPPER ABDOMEN: Normal. OTHER FINDINGS: None. IMPRESSION: Trace left inferolateral atelectatic changes discoid to subsegmental in degree. Bordering minimal left inferolateral pleural effusion and/or pleural thickening-chronicity unknown. Mild cardiomegaly. Possible mild pulmonary venous congestion as referenced above. - CT Scan/US Head CT Other Rad Studies (CT/US): Read By Radiologist, Radiology Report Reviewed CT/US Interpretation: FINDINGS: HEMORRHAGE: No intracranial hemorrhage. BRAIN: No mass effect or edema. Scattered focal lucencies in the subcortical and periventricular white matter suggestive for chronic microvascular ischemic change. Bilateral basal ganglia calcifications. VENTRICLES: Unremarkable. No hydrocephalus. CALVARIUM: Unremarkable. PARANASAL SINUSES: Unremarkable as visualized. No significant inflammatory changes. MASTOID AIR CELLS: Minimal opacification of the bilateral mastoid air cells. OTHER FINDINGS: Intracranial arterial calcifications. IMPRESSION: No acute intracranial abnormality. If symptoms persists, consider correlation with MRI. Additional findings as above. Chest CTA Other Rad Studies (CT/US): Read By Radiologist, Radiology Report Reviewed CT/US Interpretation: Accession No. : [id number]. Patient Name / ID : ORVILLE CAMPOS / [id number]. Exam Date : 09/01/2018 13:37:41 ( Approved ). Study Comment : Sex / Age : F / 73Y. Creator : Edson Virk MD. Dictator : Edson Virk MD. Talent Rep : Bulk Folder : Edson Virk MD. Approver2 : Report Date : 09/01/2018 14:17:57. My Comment : . Date of service: 09/01/2018. PROCEDURE: CT Chest with contrast (Pulmonary Angiogram). HISTORY: syncope. COMPARISON: None available. TECHNIQUE: Axial computed tomography images were obtained of the chest in the pulmonary arterial phase of enhancement. Coronal and sagittal reformatted images were created and reviewed. Intravenous contrast dose: 100 mL of Visipaque 320 intravenously. Radiation dose: Total exam DLP = 644.15 mGy- cm. This CT exam was performed using one or more of the following dose reduction techniques: Automated exposure control, adjustment of the mA and/or kV according to patient size, and/or use of iterative reconstruction technique. F INDINGS: PULMONARY ARTERIES: No evidence of filling defect in the pulmonary arteries to suggest acute pulmonary embolus. AORTA: The thoracic aorta is normal in caliber and shape. Few small foci of atherosclerotic calcification are noted. LUNGS: Unremarkable. No nodule, mass or pulmonary consolidation. Mild pulmonary vascular congestion is noted. PLEURAL SPACES: Unremarkable. No effusion or pneumothorax. HEART: The heart is mildly enlarged. No evidence of pericardial effusion. Coronary artery calcification are noted. LYMPH NODES: No lymphadenopathy. BONES, CHEST WALL: Unremarkable. No fracture or destructive lesion. OTHER FINDINGS: Unremarkable. IMPRESSION: No evidence of acute pulmonary embolus. Cardiomegaly. No evidence of pneumonia or consolidation in the lungs. Mild pulmonary vascular congestion Medical Decision Making Medical Decision Making: Plan: --EKG --Bloodwork --Chest XR --IV fluids 1L --UA --Head CT --Chest CT EKG: NSR @ 78 bpm. Normal axis. No ST elevations. Labs reviewed. Still pending urine. Spoke to patient about results of her D-dimer and order of CT. Patient is fine with CT. CTA is negative for PE. 14:30 All findings discussed w/ Dr. Best, accepts patient for admission. Notified durable medical equipment repairer. Disposition - Disposition Disposition: HOSPITALIZED Disposition Time: 14:30 Condition: STABLE - Clinical Impression Clinical Impression: Syncope, Hypomagnesemia, Hypotension - Scribe Statement The provider has reviewed the documentation as recorded by the Vargas Hardy Provider Attestation: All medical record entries made by the Vargas were at my direction and personally dictated by me. I have reviewed the chart and agree that the record accurately reflects my personal performance of the history, physical exam, medical decision making, and the department course for this patient. I have also personally directed, reviewed, and agree with the discharge instructions and disposition.
[2018-09-01 10:43] LABS: BASO % 0.7 % (0.0-2.0); EOS % 0.6 % (0.0-4.0); HEMOGLOBIN 10.6 g/dL (11.0-16.0); LYMPH # 0.7 K/uL (1.0-4.3); LYMPH % 10.6 % (20.0-40.0); MEAN CELL VOLUME 89.7 fL (81.0-99.0); MEAN CORPUSCULAR HEMOGLOBIN 29.9 pg (27.0-31.0); MEAN CORPUSCULAR HGB CONC 33.3 g/dL (33.0-37.0); MEAN PLATELET VOLUME 8.7 fL (7.2-11.7); MONO # 0.7 K/uL (0.0-0.8); MONO % 10.2 % (0.0-10.0); NEUT # 5.2 K/uL (1.8-7.0); NEUT % 77.9 % (50.0-75.0); RBC 3.55 Mil/uL (3.80-5.20); RED CELL DISTRIBUTION WIDTH 13.6 % (11.5-14.5); WHITE BLOOD COUNT 6.7 K/uL (4.8-10.8)
[2018-09-01 10:52] LABS: ALB/GLOB RATIO 1.1 (1.0-2.1); ALBUMIN 3.9 g/dL (3.5-5.0); ALT/SGPT 26 U/L (9-52); AST/SGOT 51 U/L (14-36); BLOOD UREA NITROGEN 24 mg/dL (7-17); CALCIUM 8.2 mg/dl (8.6-10.4); GFR NON-AFRICAN AMERICAN 37
--- NOTE | 2018-09-01 12:05 | CT ---
Date of service: 09/01/2018 PROCEDURE: CT HEAD WITHOUT CONTRAST. HISTORY: syncope COMPARISON: None available. TECHNIQUE: Axial computed tomography images were obtained through the head/brain without intravenous contrast. Radiation dose: Total exam DLP = 939.63 mGy-cm. This CT exam was performed using one or more of the following dose reduction techniques: Automated exposure control, adjustment of the mA and/or kV according to patient size, and/or use of iterative reconstruction technique. FINDINGS: HEMORRHAGE: No intracranial hemorrhage. BRAIN: No mass effect or edema. Scattered focal lucencies in the subcortical and periventricular white matter suggestive for chronic microvascular ischemic change. Bilateral basal ganglia calcifications. VENTRICLES: Unremarkable. No hydrocephalus. CALVARIUM: Unremarkable. PARANASAL SINUSES: Unremarkable as visualized. No significant inflammatory changes. MASTOID AIR CELLS: Minimal opacification of the bilateral mastoid air cells. OTHER FINDINGS: Intracranial arterial calcifications. IMPRESSION: No acute intracranial abnormality. If symptoms persists, consider correlation with MRI. Additional findings as above.
[2018-09-01 12:13] LABS: INR 1.3; PROTHROMBIN TIME 14.7 SECONDS (9.7-12.2)
--- NOTE | 2018-09-01 12:16 | RAD ---
Date of service: 09/01/2018 PROCEDURE: CHEST RADIOGRAPH, 1 VIEW HISTORY: AMS COMPARISON: None available. FINDINGS: LUNGS: Trace left costophrenic angle atelectatic changes suspect-bordering left small pleural effusion and/or thickening.-chronicity unknown No more extensive consolidative infiltrate seen. Shallow lung volumes PLEURA: No pneumothorax. Small left pleural effusion overseas and/or pleural thickening) suspect. CARDIOVASCULAR: There is presence of aortic atherosclerotic calcification on x-ray. Mild cardiomegaly. Possible mild pulmonary venous congestion-in part likely accentuated crowding of vessels with shallow inspiration. OSSEOUS STRUCTURES: Thoracic spondylosis. VISUALIZED UPPER ABDOMEN: Normal. OTHER FINDINGS: None. IMPRESSION: Trace left inferolateral atelectatic changes discoid to subsegmental in degree. Bordering minimal left inferolateral pleural effusion and/or pleural thickening-chronicity unknown Mild cardiomegaly. Possible mild pulmonary venous congestion as referenced above.
[2018-09-01] MEDS ORDERED: Iodixanol 320 MG/ML 100 ML BOTTLE IV ONE (13:12)
[2018-09-01] MEDS ORDERED: Magnesium Sulfate 1 gm in D5W 2 GM/200 ML BAG IVPB ONE (13:59)
[2018-09-01] MEDS: Sodium Chloride 0.9% 1,000 ML IV SCH ×2 (14:04→23:30)
[2018-09-01] MEDS: Magnesium Sulfate 1 gm in D5W 1 GM/100 ML BAG IVPB SCH ×2 (14:05→14:37)
--- NOTE | 2018-09-01 14:21 | CT ---
Date of service: 09/01/2018 PROCEDURE: CT Chest with contrast (Pulmonary Angiogram) HISTORY: syncope COMPARISON: None available. TECHNIQUE: Axial computed tomography images were obtained of the chest in the pulmonary arterial phase of enhancement. Coronal and sagittal reformatted images were created and reviewed. Intravenous contrast dose: 100 mL of Visipaque 320 intravenously. Radiation dose: Total exam DLP = 644.15 mGy-cm. This CT exam was performed using one or more of the following dose reduction techniques: Automated exposure control, adjustment of the mA and/or kV according to patient size, and/or use of iterative reconstruction technique. FINDINGS: PULMONARY ARTERIES: No evidence of filling defect in the pulmonary arteries to suggest acute pulmonary embolus. AORTA: The thoracic aorta is normal in caliber and shape. Few small foci of atherosclerotic calcification are noted. LUNGS: Unremarkable. No nodule, mass or pulmonary consolidation. Mild pulmonary vascular congestion is noted. PLEURAL SPACES: Unremarkable. No effusion or pneumothorax. HEART: The heart is mildly enlarged. No evidence of pericardial effusion. Coronary artery calcification are noted. LYMPH NODES: No lymphadenopathy. BONES, CHEST WALL: Unremarkable. No fracture or destructive lesion OTHER FINDINGS: Unremarkable. IMPRESSION: No evidence of acute pulmonary embolus. Cardiomegaly. No evidence of pneumonia or consolidation in the lungs. Mild pulmonary vascular congestion
--- NOTE | 2018-09-01 14:55 | CP.PCM.HP ---
History of Present Illness - History of Present Illness History of Present Illness: PGY-1 Sloane Aguilar D.O. H&P for Dr. Best's service: Patient is a 73 yo female with a history of HTN, HLD, and T2DM who presented to the ED after a syncopal episode at home this morning. Two of patient's daughters are at bedside and help contribute to the history. Patient was recently discharged from the hospital last week for rectal bleeding/internal hemorrhoids. She felt well upon discharge. On Wednesday, patient developed a dry cough. Yesterday, patient reports being in bed all day, not feeling well with fevers and chills (subjective). Patient did not eat or drink much yesterday but did taker her diabetes and BP meds. This morning, patient stood up and walked to the bathroom. She states she felt nausea and then fainted. Patient's daughter heard her fall and went into the room. Patient's daughter said she woke up in <1 minute. She was talking clearly and moving all body parts. Patient remembers fainting and waking up. Denies head trauma. Patient says she checked her blood sugar in the morning and it was 44; it is typically in the 100s. Patient does not check her BP at home. Patient also endorses chest congestion and mild SOB. She denies chest pain or palpitations. She denies sick contacts. Patient says she got her flu shot last week. She does not remember getting PNA vaccines. PMH: HTN, HLD, T2DM, gastritis, internal hemorrhoids PSH: cholecystectomy Meds: ASA 81mg daily, Pepcid 20mg daily, Atorvastatin 40mg QHS, Losartan-HCTZ 100-25mg daily, Metformin 500mg BID, Timolol OU daily, Tresiba 45 units SC daily All: Enalapril, Tramadol ("heart races") FH: son- diabetes SH: lives with daughter, denies alcohol, tobacco, illicit drug use PMD: Sujovolsky Present on Admission - Present on Admission Any Indicators Present on Admission: No History of DVT/PE: No History of Uncontrolled Diabetes: No Urinary Catheter: No Decubitus Ulcer Present: No History Surgical Site Infection Following: None Review of Systems - Constitutional Constitutional: Chills, Fatigue, Fever (subjective), Lethargy, Weakness. absent: Headache - EENT Eyes: absent: Change in Vision Ears: absent: Decreased Hearing Nose/Mouth/Throat: absent: Nasal Congestion, Sinus Pressure, Sore Throat - Cardiovascular Cardiovascular: Dyspnea (mild intermittent), Lightheadedness, Syncope. absent: Chest Pain, Edema, Palpitations - Respiratory Respiratory: Cough, Dyspnea, Chest Congestion. absent: Hemoptysis - Gastrointestinal Gastrointestinal: Nausea. absent: Abdominal Pain, Constipation, Diarrhea, Vomiting - Genitourinary Genitourinary: absent: Dysuria, Hematuria - Reproductive: Female Reproductive:Female: Post Menopausal - Musculoskeletal Musculoskeletal: absent: Abnormal Gait, Numbness, Tingling - Integumentary Integumentary: absent: Lesions, Swelling - Neurological Neurological: Weakness. absent: Confusion, Dizziness, Focal Weakness, Frequent Falls, Headaches, Sensory Deficit - Endocrine Endocrine: Fatigue. absent: Palpitations - Hematologic/Lymphatic Hematologic: absent: Easy Bleeding, Easy Bruising, Lymphadenopathy Past Patient History - Infectious Disease Hx of Infectious Diseases: None - Tetanus Immunizations Tetanus Immunization: Unknown - Past Medical History & Family History Past Medical History?: Yes Past Family History: Reviewed and not pertinent - Past Social History Smoking Status: Never Smoked Chewing Tobacco Use: No Cigar Use: No Alcohol: None Drugs: Denies Home Situation {Lives}: With Family (, daughter) - CARDIAC Hx Hypercholesterolemia: Yes Hx Hypertension: Yes - PULMONARY Hx Respiratory Disorders: No - NEUROLOGICAL Hx Neurological Disorder: No - HEENT Hx HEENT Problems: Yes Hx Glaucoma: Yes - RENAL Hx Chronic Kidney Disease: No - ENDOCRINE/METABOLIC Hx Endocrine Disorders: Yes Hx Diabetes Mellitus Type 1: Yes - HEMATOLOGICAL/ONCOLOGICAL Hx Blood Disorders: No - INTEGUMENTARY Hx Dermatological Problems: No - MUSCULOSKELETAL/RHEUMATOLOGICAL Hx Musculoskeletal Disorders: Yes Hx Falls: No - GASTROINTESTINAL Hx Gastritis: Yes - GENITOURINARY/GYNECOLOGICAL Hx Genitourinary Disorders: No - PSYCHIATRIC Hx Substance Use: No - SURGICAL HISTORY Hx Cholecystectomy: Yes - ANESTHESIA Hx Anesthesia: Yes Hx Anesthesia Reactions: No Meds Allergies/Adverse Reactions: Allergies Allergy/AdvReac Type Severity Reaction Status Date / Time enalapril Allergy Verified 09/01/18 09:21 tramadol Allergy Verified 09/01/18 09:21 Physical Exam - Constitutional Appears: Non-toxic, No Acute Distress - Head Exam Head Exam: ATRAUMATIC, NORMAL INSPECTION - Eye Exam Eye Exam: EOMI, Normal appearance, PERRL - ENT Exam ENT Exam: Mucous Membranes Moist, Normal Oropharynx - Neck Exam Neck exam: Positive for: Normal Inspection - Respiratory Exam Respiratory Exam: Clear to Auscultation Bilateral, NORMAL BREATHING PATTERN. absent: Accessory Muscle Use, Rales, Rhonchi, Wheezes, Respiratory Distress - Cardiovascular Exam Cardiovascular Exam: REGULAR RHYTHM, +S1, +S2. absent: Tachycardia, Irregular Rhythm - GI/Abdominal Exam GI & Abdominal Exam: Soft. absent: Distended, Tenderness - Extremities Exam Extremities exam: Positive for: normal inspection, pedal pulses present. Negative for: pedal edema, tenderness - Back Exam Back exam: NORMAL INSPECTION - Neurological Exam Neurological exam: Alert, CN II-XII Intact, Oriented x3 - Psychiatric Exam Psychiatric exam: Normal Affect, Normal Mood - Skin Skin Exam: Dry, Normal Color, Warm Results - Vital Signs Recent Vital Signs: Last Vital Signs Temp 98.2 F 09/01/18 09:38 Pulse 70 09/01/18 13:02 Resp 20 09/01/18 09:49 BP 89/59 L 09/01/18 13:02 Pulse Ox 92 L 09/01/18 14:34 - Labs Result Diagrams: 09/01/18 10:31 09/01/18 10:31 Labs: Laboratory Results - last 24 hr 09/01/18 09/01/18 09/01/18 09:28 10:31 10:31 WBC 6.7 RBC 3.55 L Hgb 10.6 L Hct 31.8 L MCV 89.7 MCH 29.9 MCHC 33.3 RDW 13.6 Plt Count 170 MPV 8.7 Neut % (Auto) 77.9 H Lymph % (Auto) 10.6 L Benson % (Auto) 10.2 H Eos % (Auto) 0.6 Baso % (Auto) 0.7 Neut # (Auto) 5.2 Lymph # (Auto) 0.7 L Benson # (Auto) 0.7 Eos # (Auto) 0.0 Baso # (Auto) 0.0 PT 14.7 H INR 1.3 APTT 40 H D-Dimer, Quantitative 897 H Sodium Potassium Chloride Carbon Dioxide Anion Gap BUN Creatinine Est GFR ( Amer) Est GFR (Non-Af Amer) POC Glucose (mg/dL) 187 H Random Glucose Calcium Magnesium Total Bilirubin AST ALT Alkaline Phosphatase Troponin I Total Protein Albumin Globulin Albumin/Globulin Ratio 09/01/18 10:31 WBC RBC Hgb Hct MCV MCH MCHC RDW Plt Count MPV Neut % (Auto) Lymph % (Auto) Benson % (Auto) Eos % (Auto) Baso % (Auto) Neut # (Auto) Lymph # (Auto) Benson # (Auto) Eos # (Auto) Baso # (Auto) PT INR APTT D-Dimer, Quantitative Sodium 131 L Potassium 3.5 L Chloride 96 L Carbon Dioxide 23 Anion Gap 15 BUN 24 H Creatinine 1.4 H Est GFR ( Amer) 45 Est GFR (Non-Af Amer) 37 POC Glucose (mg/dL) Random Glucose 163 H D Calcium 8.2 L Magnesium 1.3 L Total Bilirubin 0.5 AST 51 H D ALT 26 Alkaline Phosphatase 86 Troponin I < 0.0120 Total Protein 7.4 Albumin 3.9 Globulin 3.5 Albumin/Globulin Ratio 1.1 Assessment & Plan - Assessment and Plan (Free Text) Assessment: Patient is a 73 yo female with a history of T2DM, HTN, and HLD who presented after a syncopal episode. Patient also reports fevers, chills, and URI symptoms. Patient found to be hypoglycemic and hypotensive. Plan: Syncope- suspect 2/2 hypotension (dehydration) and/or hypoglycemia - CT head: no acute findings - CTA chest: no PE - f/u EKG (patient's daughter reports cardiology appt scheduled today- referral last week due to "irregular EKG") - Trop negative - UA negative - Monitor on telemetry - Neuro checks Q4H - Fall precautions - NS @ 100 mL/hr - Replete electrolytes Upper respiratory infection - Afebrile, no leukocytosis - CT chest: no PNA or consolidation - D-dimer 897 - f/u rapid flu - f/u Blood Cx - Tylenol 650 mg PO Q6H PRN Hypertension, chronic - Vitals Q4H - Losartan 100 mg PO daily- HOLD - HCTZ 25 mg PO daily- HOLD Type 2 diabetes mellitus, chronic - A1c 7.2 on 08/26/18 - Diabetic diet - Accuchecks ACHS - Hypoglycemia protocol - ISS - ASA 81 mg PO daily H/o internal hemorrhoids with recent lower GI bleed - Colonoscopy on 08/27/18- severe diverticulosis - patient reports diarrhea and rectal bleeding have resolved Ppx: VTE: SCDs, chemical anticoag contraindicated due to recent GI bleed GI: Pepcid 20 mg PO daily Code status: full code Case discussed with attending, Dr. Best.
[2018-09-01] MEDS ORDERED: Glucagon Recombinant 1 mg Inj IM PRN (15:44)
[2018-09-01] MEDS ORDERED: Dextrose 50% SYRINGE Inj (50 ml) IV PRN (15:44)
[2018-09-01] MEDS ORDERED: Sodium Chloride 0.9% 1,000 ML IV SCH (16:00)
[2018-09-01] MEDS ORDERED: Potassium Chloride 20 mEq ER Tab PO ONE (16:02)
[2018-09-01 16:16] LABS: SQUAMOUS EPITHIAL < 1 /hpf (0-5); URINE BILIRUBIN NEGATIVE (NEGATIVE); URINE BLOOD NEGATIVE (NEGATIVE); URINE CLARITY Clear (Clear); URINE COLOR Yellow (YELLOW); URINE GLUCOSE (UA) NORMAL (Normal); URINE LEUKOCYTE ESTERASE NEG Leu/uL (Negative); URINE PROTEIN NEGATIVE (NEGATIVE); URINE UROBILINOGEN NORMAL mg/dL (0.2-1.0)
[2018-09-01] MEDS: (Novolin R) Insulin Human Regular 100 units/ml vial SC SCH ×2 (16:45→22:05)
[2018-09-02] MEDS: (Novolin R) Insulin Human Regular 100 units/ml vial SC SCH ×4 (07:30→23:02)
[2018-09-02 07:49] LABS: BASO # 0.1 K/uL (0.0-0.2); BASO % 1.2 % (0.0-2.0); EOS # 0.2 K/uL (0.0-0.7); EOS % 4.1 % (0.0-4.0); HEMOGLOBIN 9.5 g/dL (11.0-16.0); LYMPH # 1.3 K/uL (1.0-4.3); LYMPH % 25.2 % (20.0-40.0); MEAN CELL VOLUME 89.7 fL (81.0-99.0); MEAN CORPUSCULAR HEMOGLOBIN 31.1 pg (27.0-31.0); MEAN CORPUSCULAR HGB CONC 34.7 g/dL (33.0-37.0); MEAN PLATELET VOLUME 10.1 fL (7.2-11.7); MONO # 0.6 K/uL (0.0-0.8); MONO % 11.5 % (0.0-10.0); NEUT # 2.9 K/uL (1.8-7.0); NRBC % 0.3 % (0.0-2.0); RBC 3.06 Mil/uL (3.80-5.20); RED CELL DISTRIBUTION WIDTH 14.3 % (11.5-14.5)
[2018-09-02 08:06] LABS: ALB/GLOB RATIO 1.2 (1.0-2.1); ALBUMIN 3.2 g/dL (3.5-5.0); CALCIUM 7.4 mg/dl (8.6-10.4)
[2018-09-02] MEDS: Sodium Chloride 0.9% 1,000 ML IV SCH ×3 (09:30→23:02)
--- NOTE | 2018-09-02 11:59 | CP.PCM.PN ---
Subjective - Date & Time of Evaluation Date of Evaluation: 09/02/18 Time of Evaluation: 11:58 - Subjective Subjective: PGY-1 Medicine Progress Note for Dr. Best's service S/E at bedside. Admits to generalized weakness and bodyaches. Reports slight improvement. Denies fevers, chills, chest pain, sob, n/v, constipation or diarrh ea, and dysuria and dizziness. Objective - Vital Signs/Intake and Output Vital Signs (last 24 hours): Temp Pulse Resp BP Pulse Ox 99.0 F 77 20 107/54 L 95 09/02/18 07:00 09/02/18 07:00 09/02/18 07:00 09/02/18 07:00 09/02/18 07:00 - Medications Medications: Current Medications Acetaminophen (Tylenol 325mg Tab) 650 mg PO Q6 PRN PRN Reason: Fever >100.4 F or pain Aspirin (Ecotrin) 81 mg PO DAILY [facility] Last Admin: 09/01/18 16:45 Dose: 81 mg Dextrose (Dextrose 50% Inj) 0 ml IV STAT PRN; Protocol PRN Reason: Hypoglycemia Protocol Dextrose (Glutose 15) 0 gm PO ONCE PRN; Protocol PRN Reason: Hypoglycemia Protocol Famotidine (Pepcid) 20 mg PO HS [facility] Last Admin: 09/01/18 22:23 Dose: 20 mg Glucagon (Glucagen Diagnostic Kit) 0 mg IM STAT PRN; Protocol PRN Reason: Hypoglycemia Protocol Hydrochlorothiazide (Hydrodiuril) 25 mg PO DAILY [facility] Sodium Chloride (Sodium Chloride 0.9%) 1,000 mls @ 100 mls/hr IV .Q10H [facility] Last Admin: 09/01/18 23:30 Dose: Not Given Dextrose (Dextrose 5% In Water 1000 Ml) 1,000 mls @ 0 mls/hr IV .Q0M PRN; Protocol PRN Reason: Hypoglycemia Protocol Insulin Human Regular (Novolin R) 0 unit SC ACHS [facility]; Protocol Last Admin: 09/02/18 07:30 Dose: Not Given Losartan Potassium (Cozaar) 100 mg PO DAILY [facility] Ondansetron HCl (Zofran Inj) 4 mg IVP Q6 PRN PRN Reason: Nausea/Vomiting Oseltamivir Phosphate (Tamiflu Cap) 75 mg PO BID [facility]; Protocol Stop: 09/07/18 07:23 Timolol Maleate (Timoptic 0.25% Ophth Soln) 1 drop OU DAILY [facility] - Labs Labs: 09/02/18 07:39 09/02/18 07:39 PT 14.7 SECONDS (9.7-12.2) H 09/01/18 10:31 INR 1.3 09/01/18 10:31 APTT 40 SECONDS (21-34) H 09/01/18 10:31 - Additional Findings Additional findings: - Constitutional Appears: Non-toxic, No Acute Distress - Head Exam Head Exam: ATRAUMATIC, NORMAL INSPECTION - Eye Exam Eye Exam: EOMI, Normal appearance, PERRL - ENT Exam ENT Exam: Mucous Membranes Moist, Normal Oropharynx - Neck Exam Neck exam: Positive for: Normal Inspection - Respiratory Exam Respiratory Exam: Clear to Auscultation Bilateral, NORMAL BREATHING PATTERN. absent: Accessory Muscle Use, Rales, Rhonchi, Wheezes, Respiratory Distress - Cardiovascular Exam Cardiovascular Exam: REGULAR RHYTHM, +S1, +S2. absent: Tachycardia, Irregular Rhythm - GI/Abdominal Exam GI & Abdominal Exam: Soft. absent: Distended, Tenderness - Extremities Exam Extremities exam: Positive for: normal inspection, pedal pulses present. Negative for: pedal edema, tenderness - Back Exam Back exam: NORMAL INSPECTION - Neurological Exam Neurological exam: Alert, CN II-XII Intact, Oriented x3 - Psychiatric Exam Psychiatric exam: Normal Affect, Normal Mood - Skin Skin Exam: Dry, Normal Color, Warm Assessment and Plan - Assessment and Plan (Free Text) Assessment: Patient is a 73 yo female with a history of T2DM, HTN, and HLD who presented after a syncopal episode. Patient also reports fevers, chills, and URI symptoms. Patient found to be hypoglycemic and hypotensive. Syncope- suspect 2/2 hypotension (dehydration) - CT head: no acute findings - CTA chest: no PE - f/u EKG (patient's daughter reports cardiology appt scheduled today- referral last week due to "irregular EKG") - Trop negative - UA negative - Monitor on telemetry - Neuro checks Q4H - Fall precautions - NS @ 100 mL/hr - Replete electrolytes Influeza afebrile, no leukocytosis flu positive CT chest: no PNA or consolidation Tylenol 650 mg PO Q6H PRN Tamiful 75mg po bid encourage fluid intake Hypertension, chronic - Vitals Q4H - Losartan 100 mg PO daily- HOLD - HCTZ 25 mg PO daily- HOLD Type 2 diabetes mellitus, chronic - A1c 7.2 on 08/26/18 - Diabetic diet - Accuchecks ACHS - Hypoglycemia protocol - ISS - ASA 81 mg PO daily H/o internal hemorrhoids with recent lower GI bleed - Colonoscopy on 08/27/18- severe diverticulosis - patient reports diarrhea and rectal bleeding have resolved Ppx: VTE: SCDs, chemical anticoag contraindicated due to recent GI bleed GI: Pepcid 20 mg PO daily Code status: full code Case discussed with attending, Dr. Best. PGY-1 Hannah Blackman
[2018-09-02] MEDS: Timolol 0.25% Ophth SOLN OU SCH (12:04)
--- NOTE | 2018-09-03 05:40 | CP.PCM.PN ---
Subjective - Date & Time of Evaluation Date of Evaluation: 09/03/18 Time of Evaluation: 06:45 - Subjective Subjective: Patient examined at bedside. No acute overnight events. Patient reports she has a cough that kept her from sleeping last night, and requests some cough medication. Denies chest pain, SOB, nausea, diarrhea. Objective - Vital Signs/Intake and Output Vital Signs (last 24 hours): Temp Pulse Resp BP Pulse Ox 98.4 F 68 20 117/68 98 09/02/18 23:44 09/02/18 23:44 09/02/18 23:44 09/02/18 23:44 09/02/18 23:44 Intake and Output: 09/02/18 09/03/18 18:59 06:59 Intake Total 800 Balance 800 - Medications Medications: Current Medications Acetaminophen (Tylenol 325mg Tab) 650 mg PO Q6 PRN PRN Reason: Fever >100.4 F or pain Aspirin (Ecotrin) 81 mg PO DAILY [facility] Last Admin: 09/02/18 12:03 Dose: 81 mg Dextrose (Dextrose 50% Inj) 0 ml IV STAT PRN; Protocol PRN Reason: Hypoglycemia Protocol Dextrose (Glutose 15) 0 gm PO ONCE PRN; Protocol PRN Reason: Hypoglycemia Protocol Famotidine (Pepcid) 20 mg PO HS [facility] Last Admin: 09/02/18 22:56 Dose: 20 mg Glucagon (Glucagen Diagnostic Kit) 0 mg IM STAT PRN; Protocol PRN Reason: Hypoglycemia Protocol Hydrochlorothiazide (Hydrodiuril) 25 mg PO DAILY [facility] Last Admin: 09/02/18 12:07 Dose: Not Given Sodium Chloride (Sodium Chloride 0.9%) 1,000 mls @ 100 mls/hr IV .Q10H [facility] Last Admin: 09/02/18 23:02 Dose: 100 mls/hr Dextrose (Dextrose 5% In Water 1000 Ml) 1,000 mls @ 0 mls/hr IV .Q0M PRN; Protocol PRN Reason: Hypoglycemia Protocol Insulin Human Regular (Novolin R) 0 unit SC ACHS [facility]; Protocol Last Admin: 09/02/18 23:02 Dose: Not Given Losartan Potassium (Cozaar) 100 mg PO DAILY [facility] Last Admin: 09/02/18 12:06 Dose: Not Given Ondansetron HCl (Zofran Inj) 4 mg IVP Q6 PRN PRN Reason: Nausea/Vomiting Oseltamivir Phosphate (Tamiflu Cap) 75 mg PO BID [facility]; Protocol Stop: 09/07/18 07:23 Last Admin: 09/02/18 17:26 Dose: 75 mg Timolol Maleate (Timoptic 0.25% Ophth Soln) 1 drop OU DAILY [facility] Last Admin: 09/02/18 12:04 Dose: 1 drop - Labs Labs: 09/02/18 07:39 09/02/18 07:39 PT 14.7 SECONDS (9.7-12.2) H 09/01/18 10:31 INR 1.3 09/01/18 10:31 APTT 40 SECONDS (21-34) H 09/01/18 10:31 - Constitutional Appears: Non-toxic, No Acute Distress - Head Exam Head Exam: ATRAUMATIC, NORMAL INSPECTION, NORMOCEPHALIC - Eye Exam Eye Exam: EOMI, Normal appearance, Periorbital swelling - ENT Exam ENT Exam: Mucous Membranes Moist, Normal Exam - Neck Exam Neck Exam: Normal Inspection. absent: Lymphadenopathy - Respiratory Exam Respiratory Exam: Wheezes, NORMAL BREATHING PATTERN. absent: Respiratory Distress Additional comments: coughing - Cardiovascular Exam Cardiovascular Exam: REGULAR RHYTHM, +S1, +S2. absent: Tachycardia - GI/Abdominal Exam GI & Abdominal Exam: Normal Bowel Sounds. absent: Tenderness - Extremities Exam Extremities Exam: Normal Inspection. absent: Calf Tenderness, Pedal Edema - Neurological Exam Neurological Exam: Alert, Awake, Normal Gait, Oriented x3 - Psychiatric Exam Psychiatric exam: Normal Affect, Normal Mood - Skin Skin Exam: Dry, Intact, Normal Color, Warm - Additional Findings Additional findings: - Constitutional Appears: Non-toxic, No Acute Distress - Head Exam Head Exam: ATRAUMATIC, NORMAL INSPECTION - Eye Exam Eye Exam: EOMI, Normal appearance, PERRL - ENT Exam ENT Exam: Mucous Membranes Moist, Normal Oropharynx - Neck Exam Neck exam: Positive for: Normal Inspection - Respiratory Exam Respiratory Exam: Clear to Auscultation Bilateral, NORMAL BREATHING PATTERN. absent: Accessory Muscle Use, Rales, Rhonchi, Wheezes, Respiratory Distress - Cardiovascular Exam Cardiovascular Exam: REGULAR RHYTHM, +S1, +S2. - GI/Abdominal Exam GI & Abdominal Exam: Soft. absent: Distended, Tenderness - Extremities Exam Extremities exam: Positive for: normal inspection, pedal pulses present. Negative for: pedal edema, tenderness - Back Exam Back exam: NORMAL INSPECTION - Neurological Exam Neurological exam: Alert, Awake, Oriented x3 - Psychiatric Exam Psychiatric exam: Normal Affect, Normal Mood - Skin Skin Exam: Dry, Normal Color, Warm Assessment and Plan - Assessment and Plan (Free Text) Assessment: 73 year old female w/ pmhx of DM2, HTN, HLD admitted for evaluation and treatment s/p syncopal event, currently being treated for the flu Plan: Syncope-likely 2/2 hypotension - CT head: no acute findings - CTA chest: negative for PE - f/u EKG - Trop negative - UA negative - Monitor on telemetry - Neuro checks Q8H - Fall precautions - NS @ 100 mL/hr - Replete electrolytes prn Influeza + - isolation precautions - afebrile, no leukocytosis - CT chest: no PNA or consolidation - Tylenol 650 mg PO Q6H PRN fevers - Tamiful 75mg po bid through 09/07 - Zofran q6 prn - encourage fluid intake Hypertension, chronic - Losartan 100 mg PO daily - HCTZ 25 mg PO daily- HOLD Type 2 diabetes mellitus, chronic - A1c 7.2 on 08/26/18 - Diabetic diet - Accuchecks ACHS - Hypoglycemia protocol - ISS - ASA 81 mg PO daily H/o internal hemorrhoids with recent lower GI bleed - Colonoscopy on 08/27/18- severe diverticulosis - patient reports diarrhea and rectal bleeding have resolved; hgb stable, drop likely dilutional Ppx: VTE: SCDs, chemical anticoag contraindicated due to recent GI bleed GI: Pepcid 20 mg PO daily Will discuss w/ Dr. Nasir Marie, PGY-1
[2018-09-03] MEDS: (Novolin R) Insulin Human Regular 100 units/ml vial SC SCH ×4 (08:30→21:47)
[2018-09-03 08:39] LABS: BASO % 0.8 % (0.0-2.0); EOS # 0.5 K/uL (0.0-0.7); EOS % 12.6 % (0.0-4.0); HEMOGLOBIN 10.2 g/dL (11.0-16.0); LYMPH # 1.3 K/uL (1.0-4.3); LYMPH % 28.9 % (20.0-40.0); MEAN CELL VOLUME 89.5 fL (81.0-99.0); MEAN CORPUSCULAR HEMOGLOBIN 30.1 pg (27.0-31.0); MEAN CORPUSCULAR HGB CONC 33.6 g/dL (33.0-37.0); MEAN PLATELET VOLUME 8.8 fL (7.2-11.7); MONO # 0.4 K/uL (0.0-0.8); MONO % 9.3 % (0.0-10.0); NEUT # 2.1 K/uL (1.8-7.0); NEUT % 48.4 % (50.0-75.0); RBC 3.4 Mil/uL (3.80-5.20); RED CELL DISTRIBUTION WIDTH 13.7 % (11.5-14.5); WHITE BLOOD COUNT 4.4 K/uL (4.8-10.8)
[2018-09-03 09:09] LABS: ALBUMIN 3.3 g/dL (3.5-5.0); CALCIUM 7.8 mg/dl (8.6-10.4)
[2018-09-03] MEDS: Sodium Chloride 0.9% 1,000 ML IV SCH ×3 (09:45→21:53)
[2018-09-03] MEDS: Timolol 0.25% Ophth SOLN OU SCH (09:47)
[2018-09-03] MEDS ORDERED: Promethazine/Cod 6.25mg-10mg/5ml Syr UD PO PRN (17:30)
[2018-09-03] MEDS: guaiFENesin 100 mg/5 ml Syrup UD PO PRN (21:52)
--- NOTE | 2018-09-04 01:05 | CP.PCM.PN ---
Subjective - Date & Time of Evaluation Date of Evaluation: 09/04/18 Time of Evaluation: 06:30 - Subjective Subjective: Patient examined at bedside. No acute events overnight. Patient reports she still has cough despite the addition of Phenergan. Patient is eager to shower and asks when she'd be well enough to go home. Patient also reports complaint of LE edema. Patient reports she has more energy, cough has decreased, denies SOB, nausea, diarrhea. Objective - Vital Signs/Intake and Output Vital Signs (last 24 hours): Temp Pulse Resp BP Pulse Ox 98.0 F 68 20 109/68 97 09/03/18 15:00 09/03/18 15:00 09/03/18 15:00 09/03/18 15:00 09/03/18 15:10 - Medications Medications: Current Medications Acetaminophen (Tylenol 325mg Tab) 650 mg PO Q6 PRN PRN Reason: Fever >100.4 F or pain Aspirin (Ecotrin) 81 mg PO DAILY [facility] Last Admin: 09/03/18 09:47 Dose: 81 mg Dextrose (Dextrose 50% Inj) 0 ml IV STAT PRN; Protocol PRN Reason: Hypoglycemia Protocol Dextrose (Glutose 15) 0 gm PO ONCE PRN; Protocol PRN Reason: Hypoglycemia Protocol Famotidine (Pepcid) 20 mg PO HS [facility] Last Admin: 09/03/18 21:11 Dose: 20 mg Glucagon (Glucagen Diagnostic Kit) 0 mg IM STAT PRN; Protocol PRN Reason: Hypoglycemia Protocol Guaifenesin (Robitussin) 100 mg PO Q4H PRN PRN Reason: Cough Last Admin: 09/03/18 21:52 Dose: 100 mg Hydrochlorothiazide (Hydrodiuril) 25 mg PO DAILY [facility] Last Admin: 09/03/18 09:49 Dose: Not Given Sodium Chloride (Sodium Chloride 0.9%) 1,000 mls @ 100 mls/hr IV .Q10H [facility] Last Admin: 09/03/18 21:53 Dose: 100 mls/hr Dextrose (Dextrose 5% In Water 1000 Ml) 1,000 mls @ 0 mls/hr IV .Q0M PRN; Protocol PRN Reason: Hypoglycemia Protocol Insulin Human Regular (Novolin R) 0 unit SC ACHS [facility]; Protocol Last Admin: 09/03/18 21:47 Dose: Not Given Losartan Potassium (Cozaar) 100 mg PO DAILY [facility] Last Admin: 09/03/18 09:47 Dose: 100 mg Ondansetron HCl (Zofran Inj) 4 mg IVP Q6 PRN PRN Reason: Nausea/Vomiting Oseltamivir Phosphate (Tamiflu Cap) 75 mg PO BID [facility]; Protocol Stop: 09/07/18 07:23 Last Admin: 09/03/18 17:46 Dose: 75 mg Promethazine HCl/Codeine (Phenergan/Codeine Oral Syrup) 5 ml PO Q4 PRN PRN Reason: Cough Timolol Maleate (Timoptic 0.25% Ophth Soln) 1 drop OU DAILY [facility] Last Admin: 09/03/18 09:47 Dose: 1 drop - Labs Labs: 09/03/18 08:31 09/03/18 08:31 PT 14.7 SECONDS (9.7-12.2) H 09/01/18 10:31 INR 1.3 09/01/18 10:31 APTT 40 SECONDS (21-34) H 09/01/18 10:31 - Eye Exam Eye Exam: EOMI, Normal appearance - ENT Exam ENT Exam: Mucous Membranes Moist, Normal Exam - Neck Exam Neck Exam: Normal Inspection - Respiratory Exam Respiratory Exam: Clear to Ausculation Bilateral, NORMAL BREATHING PATTERN. absent: Respiratory Distress - Cardiovascular Exam Cardiovascular Exam: REGULAR RHYTHM, +S1, +S2. absent: Tachycardia - GI/Abdominal Exam GI & Abdominal Exam: Soft, Normal Bowel Sounds. absent: Distended - Extremities Exam Extremities Exam: Normal Inspection, Pedal Edema (1+). absent: Calf Tenderness - Neurological Exam Neurological Exam: Alert, Awake, Normal Gait, Oriented x3 - Psychiatric Exam Psychiatric exam: Normal Affect, Normal Mood - Skin Skin Exam: Dry, Intact, Normal Color, Warm Assessment and Plan - Assessment and Plan (Free Text) Assessment: 73 year old female w/ pmhx of DM2, HTN, HLD admitted for evaluation and treatment s/p syncopal event, currently being treated for the flu Plan: Syncope-likely 2/2 hypotension - CT head: no acute findings - CTA chest: negative for PE - f/u EKG - Trop negative - UA negative - telemetry d/-ed, no longer indicated - NS @ 50 mL/hr, decreased from 100/hr for lower extremity edema and adequate po intake now - Replete electrolytes prn Influeza + - isolation precautions - afebrile, no leukocytosis - CT chest: no PNA or consolidation - Tylenol 650 mg PO Q6H PRN fevers - Tamiflu 75mg po bid through 09/07 - Zofran q6 prn - encourage fluid intake - Robitussin prn on for cough, added Phenergan prn Hypertension, chronic - Losartan 100 mg PO daily - HCTZ 25 mg PO daily- HOLD Type 2 diabetes mellitus, chronic - A1c 7.2 on 08/26/18 - Diabetic diet - Accuchecks ACHS - Hypoglycemia protocol - ISS ACHS - ASA 81 mg PO daily H/o internal hemorrhoids with recent lower GI bleed - Colonoscopy on 08/27/18- severe diverticulosis - patient reports diarrhea and rectal bleeding have resolved; hgb stable, drop likely dilutional Ppx: VTE: SCDs, chemical anticoag contraindicated due to recent GI bleed GI: Pepcid 20 mg PO daily Will discuss w/ Dr. Nasir Marie, PGY-1
[2018-09-04] MEDS: Sodium Chloride 0.9% 1,000 ML IV SCH (06:38)
[2018-09-04] MEDS ORDERED: Sodium Chloride 0.9% 1,000 ML IV SCH (06:45)
[2018-09-04] MEDS: (Novolin R) Insulin Human Regular 100 units/ml vial SC SCH ×4 (07:50→21:58)
[2018-09-04] MEDS: Albuterol-Ipratrop 3 mg / 0.5 (3 ml) UD INH SCH ×3 (07:50→19:28)
[2018-09-04] MEDS: Acetylcysteine 20% Inhal Soln (4ml) INH SCH ×3 (07:50→19:28)
[2018-09-04 08:52] LABS: BASO % 0.4 % (0.0-2.0); EOS # 0.7 K/uL (0.0-0.7); EOS % 13.4 % (0.0-4.0); HEMOGLOBIN 9.9 g/dL (11.0-16.0); LYMPH # 1.1 K/uL (1.0-4.3); LYMPH % 20.6 % (20.0-40.0); MEAN CELL VOLUME 90.6 fL (81.0-99.0); MEAN CORPUSCULAR HEMOGLOBIN 30.3 pg (27.0-31.0); MEAN CORPUSCULAR HGB CONC 33.5 g/dL (33.0-37.0); MEAN PLATELET VOLUME 8.8 fL (7.2-11.7); MONO # 0.5 K/uL (0.0-0.8); MONO % 9.1 % (0.0-10.0); NEUT # 2.9 K/uL (1.8-7.0); NEUT % 56.5 % (50.0-75.0); RBC 3.26 Mil/uL (3.80-5.20); RED CELL DISTRIBUTION WIDTH 13.6 % (11.5-14.5); WHITE BLOOD COUNT 5.2 K/uL (4.8-10.8)
[2018-09-04 09:12] LABS: ALB/GLOB RATIO 1.1 (1.0-2.1); ALBUMIN 3.2 g/dL (3.5-5.0); ALT/SGPT 27 U/L (9-52); AST/SGOT 34 U/L (14-36); BLOOD UREA NITROGEN 15 mg/dL (7-17); CALCIUM 7.9 mg/dl (8.6-10.4); GFR NON-AFRICAN AMERICAN 54
[2018-09-04] MEDS: Timolol 0.25% Ophth SOLN OU SCH (09:48)
[2018-09-04] MEDS: guaiFENesin 100 mg/5 ml Syrup UD PO PRN (21:39)
[2018-09-05 01:19] VITALS: O2SAT 98
[2018-09-05] MEDS: Acetylcysteine 20% Inhal Soln (4ml) INH SCH ×2 (01:26→07:30)
[2018-09-05] MEDS: Albuterol-Ipratrop 3 mg / 0.5 (3 ml) UD INH SCH ×2 (01:26→07:30)
[2018-09-05 07:29] LABS: EOS # 0.5 K/uL (0.0-0.7); HEMOGLOBIN 9.2 g/dL (11.0-16.0); LYMPH # 1.4 K/uL (1.0-4.3); LYMPH % 29.8 % (20.0-40.0); MEAN CELL VOLUME 90.5 fL (81.0-99.0); MEAN CORPUSCULAR HEMOGLOBIN 30.3 pg (27.0-31.0); MEAN CORPUSCULAR HGB CONC 33.5 g/dL (33.0-37.0); MEAN PLATELET VOLUME 8.7 fL (7.2-11.7); MONO # 0.5 K/uL (0.0-0.8); NEUT # 2.2 K/uL (1.8-7.0); NEUT % 47.6 % (50.0-75.0)
[2018-09-05 07:38] LABS: BASO % 0.6 % (0.0-2.0); NRBC % 0.3 % (0.0-2.0); RBC 3.03 Mil/uL (3.80-5.20); RED CELL DISTRIBUTION WIDTH 13.5 % (11.5-14.5); WHITE BLOOD COUNT 4.6 K/uL (4.8-10.8)
[2018-09-05 07:46] LABS: ALT/SGPT 27 U/L (9-52); AST/SGOT 28 U/L (14-36); BLOOD UREA NITROGEN 12 mg/dL (7-17); CALCIUM 7.9 mg/dl (8.6-10.4); GFR NON-AFRICAN AMERICAN > 60
[2018-09-05] MEDS: (Novolin R) Insulin Human Regular 100 units/ml vial SC SCH ×2 (08:04→12:30)
[2018-09-05 08:39] VITALS: TEMP 97.4
[2018-09-05 09:01] VITALS: BP 129/74; PULSE 74
[2018-09-05] MEDS: guaiFENesin 100 mg/5 ml Syrup UD PO PRN (09:03)
[2018-09-05] MEDS: Timolol 0.25% Ophth SOLN OU SCH (09:03)
--- NOTE | 2018-09-05 11:43 | CP.PCM.DIS ---
Provider - Provider Date of Admission: 09/03/18 17:29 Attending physician: Leonel Best Jr, MD Primary care physician: Dr. Best Time Spent in preparation of Discharge (in minutes): 29 Diagnosis - Discharge Diagnosis (1) Flu Status: Acute Hospital Course - Lab Results Lab Results: Micro Results 09/01/18 10:50 Blood Blood Culture - Preliminary NO GROWTH AFTER 4 DAYS 09/01/18 10:31 Blood Blood Culture - Preliminary NO GROWTH AFTER 4 DAYS 09/01/18 11:21 Urine Random Urine Culture - Final 50-100,000 CFU/ML. MULTIPLE SPECIES. SUGGEST REPEAT SPECIMEN. Most Recent Lab Values WBC 4.6 K/uL (4.8-10.8) L 09/05/18 07:12 RBC 3.03 Mil/uL (3.80-5.20) L 09/05/18 07:12 Hgb 9.2 g/dL (11.0-16.0) L 09/05/18 07:12 Hct 27.5 % (34.0-47.0) L 09/05/18 07:12 MCV 90.5 fL (81.0-99.0) 09/05/18 07:12 MCH 30.3 pg (27.0-31.0) 09/05/18 07:12 MCHC 33.5 g/dL (33.0-37.0) 09/05/18 07:12 RDW 13.5 % (11.5-14.5) 09/05/18 07:12 Plt Count 133 K/uL (130-400) 09/05/18 07:12 MPV 8.7 fL (7.2-11.7) 09/05/18 07:12 Neut % (Auto) 47.6 % (50.0-75.0) L 09/05/18 07:12 Lymph % (Auto) 29.8 % (20.0-40.0) 09/05/18 07:12 [place] % (Auto) 10.0 % (0.0-10.0) 09/05/18 07:12 Eos % (Auto) 12.0 % (0.0-4.0) H 09/05/18 07:12 Baso % (Auto) 0.6 % (0.0-2.0) 09/05/18 07:12 Neut # (Auto) 2.2 K/uL (1.8-7.0) 09/05/18 07:12 Lymph # (Auto) 1.4 K/uL (1.0-4.3) 09/05/18 07:12 [place] # (Auto) 0.5 K/uL (0.0-0.8) 09/05/18 07:12 Eos # (Auto) 0.5 K/uL (0.0-0.7) 09/05/18 07:12 Baso # (Auto) 0.0 K/uL (0.0-0.2) 09/05/18 07:12 PT 14.7 SECONDS (9.7-12.2) H 09/01/18 10:31 INR 1.3 09/01/18 10:31 APTT 40 SECONDS (21-34) H 09/01/18 10:31 D-Dimer, Quantitative 897 ng/mlDDU (0-243) H 09/01/18 10:31 Sodium 139 mmol/L (132-148) 09/05/18 07:12 Potassium 4.1 mmol/L (3.6-5.2) 09/05/18 07:12 Chloride 112 mmol/L (98-107) H 09/05/18 07:12 Carbon Dioxide 21 mmol/L (22-30) L 09/05/18 07:12 Anion Gap 10 (10-20) 09/05/18 07:12 BUN 12 mg/dL (7-17) 09/05/18 07:12 Creatinine 0.9 mg/dL (0.7-1.2) 09/05/18 07:12 Est GFR ( Amer) > 60 09/05/18 07:12 Est GFR (Non-Af Amer) > 60 09/05/18 07:12 POC Glucose (mg/dL) 173 mg/dL (65-110) H 09/05/18 11:16 Random Glucose 113 mg/dL (65-105) H 09/05/18 07:12 Calcium 7.9 mg/dl (8.6-10.4) L 09/05/18 07:12 Phosphorus 3.3 mg/dL (2.5-4.5) 09/05/18 07:12 Magnesium 1.7 mg/dL (1.6-2.3) 09/05/18 07:12 Total Bilirubin 0.4 mg/dL (0.2-1.3) 09/05/18 07:12 AST 28 U/L (14-36) 09/05/18 07:12 ALT 27 U/L (9-52) 09/05/18 07:12 Alkaline Phosphatase 72 U/L (38-126) 09/05/18 07:12 Troponin I < 0.0120 ng/mL (0.00-0.120) 09/01/18 10:31 Total Protein 5.9 g/dL (6.3-8.3) L 09/05/18 07:12 Albumin 3.0 g/dL (3.5-5.0) L 09/05/18 07:12 Globulin 2.9 gm/dL (2.2-3.9) 09/05/18 07:12 Albumin/Globulin Ratio 1.0 (1.0-2.1) 09/05/18 07:12 Urine Color Yellow (YELLOW) 09/01/18 15:55 Urine Clarity Clear (Clear) 09/01/18 15:55 Urine pH 5.0 (5.0-8.0) 09/01/18 15:55 Ur Specific [place] 1.018 (1.003-1.030) 09/01/18 15:55 Urine Protein Negative mg/dL (NEGATIVE) 09/01/18 15:55 Urine Glucose (UA) Normal mg/dL (Normal) 09/01/18 15:55 Urine Ketones Negative mg/dL (NEGATIVE) 09/01/18 15:55 Urine Blood Negative (NEGATIVE) 09/01/18 15:55 Urine Nitrate Negative (NEGATIVE) 09/01/18 15:55 Urine Bilirubin Negative (NEGATIVE) 09/01/18 15:55 Urine Urobilinogen Normal mg/dL (0.2-1.0) 09/01/18 15:55 Ur Leukocyte Esterase Neg [place]/uL (Negative) 09/01/18 15:55 Urine WBC (Auto) 1 /hpf (0-5) 09/01/18 15:55 Urine RBC (Auto) < 1 /hpf (0-3) 09/01/18 15:55 Ur Squamous Epith Cells < 1 /hpf (0-5) 09/01/18 15:55 Hyaline Casts 3-5 /lpf (0-2) H 09/01/18 15:55 Influenza Typ A,B (EIA) Pos for influenza a (NEGATIVE) H 09/01/18 17:58 - Hospital Course Hospital Course: Patient was evaluated and treated for complaints of syncopal event. Vitals at time of presentation revealed hypotension, with BP, of 73/40, no tachycardia or fever. Labs performed in the ED revealed no leukocytosis, however pt was hyponatremic at 131. Patient was resuscitated with 1L NS with appropriate response. Chest X-ray, CTA, Head CT were negative for acute pathology. Pt tested positive for Influenza A, and was admitted to isolation, and treated acco rdingly. Home medications resumed, in addition to starting tamiflu and continuing IVF. Electrolytes normalized and pt was given Phenergan w/ codeine to control cough. Patient's symptoms improved during stay, and was able to tolerate appropriate PO intake. She was discharged home in stable condition with a prescription for phenergan w/ codeine prn. Patient instructed to follow up w/ PMD Dr. Best upon discharge, and to return to ED w/ any worsening of symptoms. HPI on admission: 'Patient is a 73 yo female with a history of HTN, HLD, and T2DM who presented to the ED after a syncopal episode at home this morning. Two of patient's daughters are at bedside and help contribute to the history. Patient was recently discharged from the hospital last week for rectal bleeding/internal hemorrhoids. She felt well upon discharge. On Wednesday, patient developed a dry cough. Yesterday, patient reports being in bed all day, not feeling well with fevers and chills (subjective). Patient did not eat or drink much yesterday but did taker her diabetes and BP meds. This morning, patient stood up and walked to the bathroom. She states she felt nausea and then fainted. Patient's daughter heard her fall and went into the room. Patient's daughter said she woke up in <1 minute. She was talking clearly and moving all body parts. Patient remembers fainting and waking up. Denies head trauma. Patient says she checked her blood sugar in the morning and it was 44; it is typically in the 100s. Patient does not check her BP at home. Patient also endorses chest congestion and mild SOB. She denies chest pain or palpitations. She denies sick contacts. Patient says she got her flu shot last week. She does not remember getting PNA vaccines." Discharge Exam - Head Exam Head Exam: ATRAUMATIC, NORMAL INSPECTION, NORMOCEPHALIC - Eye Exam Eye Exam: EOMI, Normal appearance - ENT Exam ENT Exam: Mucous Membranes Moist - Respiratory Exam Respiratory Exam: Clear to PA & Lateral, NORMAL BREATHING PATTERN, UNREMARKABLE - Cardiovascular Exam Cardiovascular Exam: REGULAR RHYTHM. absent: Tachycardia - GI/Abdominal Exam GI & Abdominal Exam: Normal Bowel Sounds, Unremarkable - Extremities Exam Extremities exam: normal capillary refill, normal inspection - Neurological Exam Neurological exam: Alert, Normal Gait, Oriented x3 - Psychiatric Exam Psychiatric exam: Normal Affect, Normal Mood - Skin Skin Exam: Dry, Intact, Normal Color Discharge Plan - Discharge Medications Prescriptions: Promethazine/Codeine [Phenergan/Codeine Oral Syrup] 5 ml PO Q4 PRN #4 oz PRN Reason: Cough - Follow Up Plan Condition: STABLE Disposition: HOME/ ROUTINE Instructions: Flu, Adult (DC), Promethazine Additional Instructions: Patient is stable for discharge home. Patient is instructed to resume all home medications as prescribed by Dr. Best. Patient will also be given a prescription for a cough suppressant to be taken as needed, and as instructed. Patient was treated for the Flu, and is now stable for discharge home. Patient instructed to follow up with PMD within 2 weeks of discharge, or sooner if symptoms do not resolve. Patient instructed to return to the emergency department with any worsening of symptoms. Referrals: Leonel Best Jr., MD [Medical Doctor] - 2 Weeks
== END 2018-09-05 14:13 | disposition home or self-care (01) | DRG 194 ==
LOC: C.ER 09:15 → C.9E 14:32 → C.5S 15:45 → OBSVTOIN 09-03 17:29
PROVIDERS: ADMIT Internal Medicine; ATTEND Internal Medicine
DX: J10.1 Influenza due to other identified influenza virus with other respiratory manifestations (principal); E87.1 Hypo-osmolality and hyponatremia; E11.649 Type 2 diabetes mellitus with hypoglycemia without coma; Z79.4 Long term (current) use of insulin; E78.5 Hyperlipidemia, unspecified; E83.42 Hypomagnesemia; I10 Essential (primary) hypertension; K57.90 Diverticulosis of intestine, part unspecified, without perforation or abscess without bleeding; Z79.82 Long term (current) use of aspirin; I95.9 Hypotension, unspecified; E78.00 Pure hypercholesterolemia, unspecified